=== PATIENT | female | born 1980 | race Caucasian/White ===

== ENCOUNTER 2016-08-27 17:56 | Emergency (ER) | payer MEDICAID ==
[2016-08-27] MEDS ORDERED: HYDROmorphone 1 MG/ML SYRINGE IVP STA (18:21)
[2016-08-27] MEDS ORDERED: ONDANSETRON 4 MG/2 ML VIAL IVP STA (18:21)
[2016-08-27] MEDS ORDERED: ONDANSETRON 4 MG/2 ML VIAL ONE (18:29)
[2016-08-27] MEDS ORDERED: HYDROmorphone 1 MG/ML SYRINGE ONE (18:29)
[2016-08-27] MEDS ORDERED: SODIUM CHLORIDE 0.9% 1,000 ML IV ONE ×2 (18:59→19:00)
[2016-08-27] MEDS ORDERED: PROMETHAZINE INJ 25 MG in SODIUM CHLORIDE 0.9% 50 ML IV STA (19:38)
[2016-08-27] MEDS ORDERED: PROMETHAZINE 25 MG/1 ML VIAL ONE (19:42)
[2016-08-27] MEDS ORDERED: KETOROLAC 60 MG/2 ML VIAL IVP STA (20:30)
[2016-08-27] MEDS ORDERED: KETOROLAC 30 MG/ML VIAL ONE (20:33)
[2016-08-27] MEDS ORDERED: IOPAMIDOL-300 100 ML VIAL IVP ONE (20:51)
[2016-08-27] MEDS ORDERED: PANTOPRAZOLE 40 MG VIAL IVP STA (21:20)
[2016-08-27] MEDS ORDERED: PANTOPRAZOLE 40 MG VIAL ONE (21:22)
[2016-08-27] MEDS ORDERED: HALOPERIDOL 5 MG/ML VIAL IVP STA (21:52)
[2016-08-27] MEDS ORDERED: HALOPERIDOL 5 MG/ML VIAL ONE (21:52)
== END 2016-08-27 22:16 | disposition home or self-care (01) ==
DX: R10.10 Upper abdominal pain, unspecified (principal); K29.00 Acute gastritis without bleeding
CPT/HCPCS: 36415; 74177; 76705; 80053; 81001; 81025; 83690; 85025; 93010; 96365; 96375; 99283; 99284; J1170; Q9967

== ENCOUNTER 2016-09-06 14:11 | Outpatient (CLI) | payer MEDICAID | END 2016-09-06 14:12 | disposition home or self-care (01) | DX: R11.0 Nausea (principal) ==

== ENCOUNTER 2016-09-17 11:30 | Day surgery (SDC) | payer MEDICAID ==
[2016-09-17] MEDS ORDERED: LACTATED RINGERS 1,000 ML IV ONE (12:13)
[2016-09-17] MEDS ORDERED: ONDANSETRON 4 MG/2 ML VIAL ONE (12:29)
[2016-09-17] MEDS ORDERED: fentaNYL 250 MCG/5 ML VIAL IVP ONE (13:40)
[2016-09-17] MEDS ORDERED: MIDAZOLAM 2 MG/2 ML VIAL IVP ONE (13:40)
[2016-09-17] MEDS ORDERED: LIDO GARGLE 30 ML BOTTLE PO ONE (13:45)
== END 2016-09-17 11:31 | disposition home or self-care (01) ==
PROC: 0DB68ZX Excision of Stomach, Via Natural or Artificial Opening Endoscopic, Diagnostic (ICD-10-PCS; principal; 2016-09-17 12:45)
DX: R10.9 Unspecified abdominal pain (principal); K92.0 Hematemesis; K21.9 Gastro-esophageal reflux disease without esophagitis
CPT/HCPCS: 43239; 81025; A9270; J3010; J7120

== ENCOUNTER 2016-12-16 12:30 | Outpatient (CLI) | payer MEDICAID | END 2016-12-16 12:31 | disposition home or self-care (01) | LOC: LAB.N 12:30 | PROVIDERS: ATTEND Physician Assistant | DX: R10.84 Generalized abdominal pain (principal) | CPT/HCPCS: 87338 ==

== ENCOUNTER 2017-01-07 14:04 | Outpatient (CLI) | payer MEDICAID ==
[2017-01-09 17:16] LABS: TEST RESULT REPORT (())
== END 2017-01-07 23:59 | disposition home or self-care (01) ==
LOC: LAB.N 14:04
PROVIDERS: ATTEND Physician Assistant
DX: Z83.49 Family history of other endocrine, nutritional and metabolic diseases (principal)
CPT/HCPCS: 36415; 81599; 82784; 83516

== ENCOUNTER 2017-02-12 21:35 | Emergency (ER) | payer MEDICAID ==
--- NOTE | 2017-02-12 23:22 | CT Preliminary Report ---
Exam: CT Head W/O IMPRESSION: Normal head CT. [facility] SITE ID: [id number]
--- NOTE | 2017-02-12 23:24 | CT Preliminary Report ---
Exam: CT Cervical Spine W/O IMPRESSION: Normal cervical spine CT. [facility] SITE ID: [id number]
--- NOTE | 2017-02-12 23:25 | CT Report ---
EXAM: CT HEAD EXAM DATE: 02/12/2017 11:01 PM. CLINICAL HISTORY: Nausea, vomiting, fall downstairs. COMPARISON: None. TECHNIQUE: Multiaxial CT images were obtained from the foramen magnum to the vertex. IV contrast: Non e. Reformats: Coronal. In accordance with CT protocol optimization, one or more of the following dose reduction techniques w ere utilized for this exam: automated exposure control, adjustment of mA and/or KV based on patient s ize, or use of iterative reconstructive technique. FINDINGS: Parenchyma: No intraparenchymal hemorrhage. No evidence of mass, midline shift, or CT findings of inf arction. Mak-white differentiation is distinct. Extraaxial Spaces: Normal for age. No subdural or epidural collections identified. Ventricles: Normal in size and position. Sinuses: Imaged paranasal sinuses, orbits, and mastoids show no significant abnormality. Bones: No evidence of fracture or calvarial defect. IMPRESSION: Normal head CT. [facility] Referring Provider Line: [phone] SITE ID: [id number]
--- NOTE | 2017-02-12 23:27 | CT Report ---
EXAM: CT CERVICAL SPINE WITHOUT CONTRAST DATE: 02/12/2017 11:02 PM HISTORY: Neck pain, fall downstairs, loss of consciousness. COMPARISONS: None. TECHNIQUE: Thin-section axial images were acquired of the cervical spine without contrast. Post-proce ssing: Coronal and sagittal reformats. Other: None. In accordance with CT protocol optimization, one or more of the following dose reduction techniques w ere utilized for this exam: automated exposure control, adjustment of mA and/or KV based on patient s ize, or use of iterative reconstructive technique. FINDINGS: Alignment: Normal. No scoliosis or spondylolisthesis. Bones: No fracture or bone lesion. Interspace Levels/Facets: C1-C2: Unremarkable. C2-C3: Unremarkable. C3-C4: Unremarkable. C4-C5: Unremarkable. C5-C6: Unremarkable. C6-C7: Unremarkable. C7-T1: Unremarkable. Musculature: Normal. No fatty atrophy. Other: The paravertebral and prevertebral soft tissues are normal. The lung apices are clear. IMPRESSION: Normal cervical spine CT. [facility] Referring Provider Line: [phone] SITE ID: [id number]
--- NOTE | 2017-02-12 23:40 | ED Physician Documentation ---
PD HPI HEAD INJURY - Stated complaint Stated Complaint: FELL DOWN STEPS - Chief complaint Chief Complaint: Neuro - History obtained from History obtained from: Patient, Family - History of Present Illness Mechanism of head injury: Fell Where head injury occurred: Other Timing - onset: How many days ago (4) Location of injury: Back Quality of pain: Pain, Aching Associated symptoms: LOC, Nausea / vomiting, Neck pain, Seizures Symptoms worsen with: Palpation, Movement Contributing factors: No: Anticoagulated Similar symptoms before: Has not had sx before Recently seen: Not recently seen - Additional information Additional information: Patient is a 36 year old female with no significant past medical history who is presenting to the emergency department for headache, neck pain nausea and vomiting. Patient states that she was in [facility] 3 days ago. patient states that it was raining and she fell down 16 steps hurting her head, neck and extremities. patient states that she went to a nurse there that gave her a numbing spray but patient has had multiple neurological symptoms since that time. Review of Systems Constitutional: denies: Fever, Chills Eyes: reports: Photophobia Ears: denies: Ear pain, Drainage/discharge Nose: denies: Rhinorrhea / runny nose, Congestion Throat: denies: Dental pain / toothache, Oral lesions / sores Cardiac: denies: Chest pain / pressure Respiratory: denies: Cough, Hemoptysis, Wheezing GI: reports: Nausea, Vomiting. denies: Abdominal Pain : denies: Hesitancy Skin: reports: Other (ecchymosis). denies: Rash Musculoskeletal: reports: Neck pain, Extremity pain Neurologic: reports: Syncope, Confused, Headache, Head injury. denies: Generalized weakness, Focal weakness, Numbness, Difficulty speaking Immunocompromised: denies: Immunocompromised PD PAST MEDICAL HISTORY - Past Medical History Past Medical History: Yes Cardiovascular: None Respiratory: None Neuro: Motion sickness Endocrine/Autoimmune: None GI: GERD, Other : None HEENT: None Psych: Depression, Anxiety Musculoskeletal: None Derm: None - Past Surgical History Past Surgical History: Yes General: Cholecystectomy /UNBUNDLER: section, Tubal ligation HEENT: Tonsil/Adenoidectomy - Present Medications Home Medications: Ambulatory Orders Medication Instructions Recorded Confirmed Famotidine [Pepcid] 20 mg PO BID #60 tablet 08/27/16 09/17/16 Omeprazole [PriLOSEC] 20 mg PO DAILY #30 capsule 08/27/16 09/17/16 Ondansetron Odt [Zofran] 4 mg TL Q6H PRN #10 tablet 08/27/16 09/17/16 Promethazine [Phenergan] 25 mg PO Q6H PRN #10 tab 08/27/16 09/17/16 Sertraline [Zoloft] 0 mg PO DAILY 08/27/16 09/17/16 buPROPion [Wellbutrin Sr] 100 mg PO DAILY 08/27/16 09/17/16 Ondansetron Odt [Zofran] 4 mg TL Q6H PRN #14 tablet 02/12/17 - Allergies Allergies/Adverse Reactions: Allergies Allergy/AdvReac Type Severity Reaction Status Date / Time No Known Drug Allergies Allergy Verified 02/12/17 21:43 - Social History Does the pt smoke?: No Smoking Status: Never smoker Does the pt drink ETOH?: No Does the pt have substance abuse?: No - Immunizations Immunizations are current?: Yes - POLST Patient has POLST: No PD ED PE NORMAL - Vitals Vital signs reviewed: Yes - General General: Alert and oriented X 3, Well developed/nourished - HEENT HEENT: PERRL, Ears normal, Moist mucous membranes, Dentition benign - Cardiac Cardiac: RRR, No murmur - Respiratory Respiratory: No respiratory distress - Abdomen Abdomen: Soft, Non tender, Non distended - Derm Derm: Normal color, Warm and dry - Neuro Neuro: Alert and oriented X 3, 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, No motor deficit, No sensory deficit, Normal speech - Psych Psych: Normal mood PD ED PE EXPANDED - Neck Neck: Soft tissue TTP (left sided tenderness to palpation, no step offs) - Extremities Extremities: Left shoulder (tenderness to palpation of left shoulder), Left hip (ecchymosis of left hip) Results - Vitals Vitals: Vital Signs - 24 hr 02/12/17 02/12/17 21:40 23:53 Temperature 36.8 C 36.2 C L Heart Rate 67 61 Respiratory 14 15 Rate Blood Pressure 129/81 H 131/81 H O2 Saturation 100 100 Oxygen O2 Source Room air - Rads (name of study) ct head Radiology: Final report received (no acute pathology) ct cervical spine Radiology: Final report received (no acute pathology) PD MEDICAL DECISION MAKING - ED course Complexity details: reviewed old records, reviewed results, re-evaluated patient , considered differential, d/w patient ED course: Patient was seen and examined at bedside. Due to the severity and location of her symptoms CT of head and cervical spine were ordered. x-rays of the extremities were not ordered since there was no gross deformity, patient was able to weight bare and had full rom. When patient returned from imaging the results were reviewed. there was no acute fracture or dislocation. patient was made aware of the findings. Patient required no further inpatient work up and was stable for discharge with outpatient follow up. Departure - Departure Disposition: Home, Self Care Clinical Impression: Concussion Condition: Good Instructions: ED Concussion Follow-Up: Amanda Godinez ARNP [Primary Care Provider] - As Needed Prescriptions: Ondansetron Odt [Zofran] 4 mg TL Q6H PRN #14 tablet PRN Reason: Nausea / Vomiting Comments: Your diagnostics today were within normal limits. there was no sign of any traumatic brain injury. that being said it is not always visualized on CT imaging. Your symptoms are consistent with concussion. You will need to take motrin or tylenol as needed for pain and zofran for the nausea. You should follow up with your pmd if your symptoms persist. You may return to the emergency department at any time for new worsening or uncontrollable symptoms. Discharge Date/Time: 02/13/17 00:22
[2017-02-12 23:54] VITALS: BP 131/81
== END 2017-02-13 00:22 | disposition home or self-care (01) ==
LOC: ED 21:35
DX: S06.0X0A Concussion without loss of consciousness, initial encounter (principal); W10.9XXA Fall (on) (from) unspecified stairs and steps, initial encounter; M54.2 Cervicalgia
CPT/HCPCS: 70450; 72125; 99283; 99284

== ENCOUNTER 2017-02-24 18:03 | Emergency (ER) | payer MEDICAID ==
[2017-02-24] MEDS ORDERED: SODIUM CHLORIDE 0.9% 1,000 ML IV ONE (21:31)
[2017-02-24] MEDS ORDERED: ONDANSETRON 4 MG/2 ML VIAL IVP STA ×2 (21:31→22:43)
[2017-02-24 21:45] LABS: BASOPHILS # (AUTO) 0.1 10^3/uL (0.0-0.1); BASOPHILS % (AUTO) 0.4 %; HCT - HEMATOCRIT 42.2 % (37.0-47.0); HGB - HEMOGLOBIN 13.6 g/dL (12.0-16.0); LYMPHOCYTES # (AUTO) 0.9 10^3/uL (1.5-3.5); LYMPHOCYTES % (AUTO) 6.3 %; MEAN CORPUSCULAR HGB CONC 32.1 g/dL (32.0-36.0); MEAN CORPUSCULAR VOLUME 80.9 fL (81.0-99.0); MEAN PLATELET VOLUME 7.9 fL (7.9-10.8); MONOCYTES # (AUTO) 0.3 10^3/uL (0.0-1.0); MONOCYTES % (AUTO) 1.9 %; NEUTROPHILS # (AUTO) 12.7 10^3/uL (1.5-6.6); NEUTROPHILS % (AUTO) 91.4 %; RED BLOOD COUNT 5.22 10^6/uL (4.20-5.40); UNCORRECTED WHITE BLOOD COUNT 13.9 x10^3/uL; WHITE BLOOD COUNT 13.9 x10^3/uL (4.8-10.8)
[2017-02-24] MEDS ORDERED: ONDANSETRON 4 MG/2 ML VIAL ONE ×2 (21:46→22:48)
[2017-02-24] MEDS ORDERED: HYDROmorphone 1 MG/ML SYRINGE IVP STA (21:50)
[2017-02-24] MEDS ORDERED: FAMOTIDINE 20 MG in SODIUM CHLORIDE 0.9% 50 ML IV STA (21:50)
[2017-02-24] MEDS ORDERED: FAMOTIDINE 20 MG/50 ML 50 ML IV ONE (21:56)
[2017-02-24] MEDS ORDERED: HYDROmorphone 1 MG/ML SYRINGE ONE (21:56)
[2017-02-24 21:58] LABS: ALBUMIN/GLOBULIN RATIO 1.4 (1.0-2.2); BILIRUBIN,TOTAL 0.5 mg/dL (0.2-1.0); CALCIUM 9.8 mg/dL (8.5-10.3); CREATININE 0.7 mg/dL (0.4-1.0); POTASSIUM 4.4 mmol/L (3.5-5.0); TOTAL PROTEIN 8.3 g/dL (6.7-8.2)
[2017-02-25] MEDS ORDERED: SODIUM CHLORIDE 0.9% 1,000 ML IV ONE (00:18)
[2017-02-25 01:28] LABS: BILIRUBIN,URINE NEGATIVE (NEGATIVE)
[2017-02-25] MEDS ORDERED: PROCHLORPERAZINE INJ 10 MG in SODIUM CHLORIDE 0.9% 50 ML IV ONE (01:31)
[2017-02-25] MEDS ORDERED: PROCHLORPERAZINE 10 MG/2 ML VIAL ONE (01:36)
[2017-02-25 01:37] LABS: HCG UR QUAL NEGATIVE; UA CHARGE (STRIP ONLY) YES; UR CULTURE IF IND NOT INDICATED
[2017-02-25 02:53] VITALS: BP 131/70
--- NOTE | 2017-02-25 04:16 | ED Physician Documentation ---
PD HPI ABD PAIN - Stated complaint Stated Complaint: VOMITING - Chief complaint Chief Complaint: Abd Pain - History obtained from History obtained from: Patient, Family - Additional information Additional information: Patient is a 36-year-old female who for the most part has no significant health problems. She does have a history of recurrent episodes of nausea vomiting and this is been ongoing issue. She had a cholecystectomy in the past and this is improved but not completely alleviated her problems. She does get these episodes where she has recurrent nausea vomiting and nobody's been able to find out any definite cause. The only thing new is the onset of diaphoresis today and the fact that she had not had a bowel movement for about a week until today. She also has a history of reflux takes omeprazole and also had some mild epigastric pain and tenderness on exam. She denies any fever or chills. There is not been any diarrhea. Macro review Review of systems: For pertinent positive and negatives in the review of systems please see the history of present illness, otherwise all other systems have been reviewed and are negative. Dragrash[employer] disclaimer: Parts of this medical record were created using voice recognition technology. Because of the inherent limitations of this system, occasional same sounding word substitutions do occur and persist despite proofreading. Please read the document for context. Review of Systems Constitutional: denies: Fever, Chills Cardiac: denies: Chest pain / pressure, Palpitations GI: reports: Abdominal Pain, Abdominal Swelling, Nausea, Vomiting. denies: Diarrhea, Hematemesis PD PAST MEDICAL HISTORY - Past Medical History Cardiovascular: None Respiratory: None Neuro: Motion sickness Endocrine/Autoimmune: None GI: GERD, Other : None HEENT: None Psych: Depression, Anxiety Musculoskeletal: None Derm: None - Past Surgical History Past Surgical History: Yes General: Cholecystectomy /LAUNDROMAT WORKER: section, Tubal ligation HEENT: Tonsil/Adenoidectomy - Present Medications Home Medications: Ambulatory Orders Medication Instructions Recorded Confirmed Famotidine [Pepcid] 20 mg PO BID #60 tablet 08/27/16 02/24/17 buPROPion [Wellbutrin Sr] 100 mg PO DAILY 08/27/16 02/24/17 Ondansetron Odt [Zofran] 4 mg TL Q6H PRN #14 tablet 02/25/17 Promethazine [Phenergan] 25 - 50 mg PO Q6H PRN #14 tab 02/25/17 - Allergies Allergies/Adverse Reactions: Allergies Allergy/AdvReac Type Severity Reaction Status Date / Time No Known Drug Allergies Allergy Verified 02/12/17 21:43 - Social History Does the pt smoke?: No Smoking Status: Never smoker Does the pt drink ETOH?: No Does the pt have substance abuse?: No - Immunizations Immunizations are current?: Yes - POLST Patient has POLST: No PD ED PE NORMAL - Vitals Vital signs reviewed: Yes - General General: Alert and oriented X 3, No acute distress - HEENT HEENT: Atraumatic - Neck Neck: Supple, no meningeal sign, No bony TTP - Cardiac Cardiac: RRR - Respiratory Respiratory: No respiratory distress - Abdomen Abdomen: Normal bowel sounds, Non tender, Non distended, Other (Minimal epigastric tenderness on deep palpation) - Rectal Rectal: Deferred - Derm Derm: Normal color - Extremities Extremities: No deformity Results - Vitals Vitals: Vital Signs - 24 hr 02/24/17 02/24/17 02/24/17 18:08 21:18 23:27 Temperature 36.0 C L 37.0 C Heart Rate 78 63 70 Respiratory 18 16 19 Rate Blood Pressure 138/67 H 148/81 H 132/74 H O2 Saturation 100 100 96 02/25/17 02/25/17 01:35 02:53 Temperature 35.6 C L Heart Rate 88 71 Respiratory 9 L 18 Rate Blood Pressure 133/76 H 131/70 H O2 Saturation 100 100 Oxygen O2 Source Room air - Labs Labs: Laboratory Tests 02/24/17 02/24/17 02/24/17 21:38 21:38 21:38 WBC 13.9 H RBC 5.22 Hgb 13.6 Hct 42.2 MCV 80.9 L MCH 26.0 L MCHC 32.1 RDW 15.0 Plt Count 450 MPV 7.9 Neut # 12.7 H Lymph # 0.9 L [place] # 0.3 Eos # 0.0 Baso # 0.1 Absolute Nucleated RBC 0.00 Nucleated RBCs 0.0 Sodium 139 Potassium 4.4 Chloride 101 Carbon Dioxide 26 Anion Gap 12.0 BUN 13 Creatinine 0.7 Estimated GFR (MDRD) 96 Glucose 176 H Calcium 9.8 Total Bilirubin 0.5 AST 28 ALT 37 Alkaline Phosphatase 75 Total Protein 8.3 H Albumin 4.9 Globulin 3.4 Albumin/Globulin Ratio 1.4 Lipase 22 HCG, Quant < 0.60 Urine Color Urine Clarity Urine pH Ur Specific [place] Urine Protein Urine Glucose (UA) Urine Ketones Urine Occult Blood Urine Nitrite Urine Bilirubin Urine Urobilinogen Ur Leukocyte Esterase Ur Microscopic Review Urine Culture Comments Urine HCG, Qual 02/25/17 01:20 WBC RBC Hgb Hct MCV MCH MCHC RDW Plt Count MPV Neut # Lymph # [place] # Eos # Baso # Absolute Nucleated RBC Nucleated RBCs Sodium Potassium Chloride Carbon Dioxide Anion Gap BUN Creatinine Estimated GFR (MDRD) Glucose Calcium Total Bilirubin AST ALT Alkaline Phosphatase Total Protein Albumin Globulin Albumin/Globulin Ratio Lipase HCG, Quant Urine Color YELLOW Urine Clarity CLEAR Urine pH 7.0 Ur Specific [place] 1.020 Urine Protein NEGATIVE Urine Glucose (UA) 100 H Urine Ketones 15 H Urine Occult Blood TRACE-LYSE Urine Nitrite NEGATIVE Urine Bilirubin NEGATIVE Urine Urobilinogen 0.2 (NORMAL) Ur Leukocyte Esterase NEGATIVE Ur Microscopic Review NOT INDICATED Urine Culture Comments NOT INDICATED Urine HCG, Qual NEGATIVE PD MEDICAL DECISION MAKING - ED course ED course: Patient is appearing female who presents with a complaint of nausea vomiting and decreased p.o. intake 1 day. She has a history of recurrent episodes of nausea and vomiting and is also status post cholecystectomy however her symptoms have continued. She denies any fever or chills and on exam she does have mild tenderness in the epigastrium otherwise there is a soft nontender non- clinically acute abdomen. An IV line was started she is given IV fluids, antiemetics and now feels better. Routine labs are done there is no significant laboratory abnormalities clinically the patient looks and feels better and at this time will be discharged home with the prescription for antiemetics, Disposition: To home Clinical impression: 1. Acute on recurrent nausea and vomiting Departure - Departure Disposition: 01 Home, Self Care Clinical Impression: Nausea and vomiting in adult Condition: Good Instructions: ED Nausea Vomiting Follow-Up: Adi Forrester MD [Primary Care Provider] - Prescriptions: Promethazine [Phenergan] 25 - 50 mg PO Q6H PRN #14 tab PRN Reason: Nausea / Vomiting Ondansetron Odt [Zofran] 4 mg TL Q6H PRN #14 tablet PRN Reason: Nausea / Vomiting Discharge Date/Time: 02/25/17 02:53
== END 2017-02-25 02:53 | disposition home or self-care (01) ==
LOC: ED 18:03
DX: R11.2 Nausea with vomiting, unspecified (principal); Z98.890 Other specified postprocedural states
CPT/HCPCS: 36415; 80053; 81003; 81025; 83690; 84702; 85025; 96361; 96365; 96375; 99284; J1170; J7040; 81001; 87086

== ENCOUNTER 2017-06-02 12:10 | Outpatient (CLI) | payer MEDICAID ==
[2017-06-02 12:41] LABS: BASOPHILS # (AUTO) 0.1 10^3/uL (0.0-0.1); BASOPHILS % (AUTO) 0.9 %; EOSINOPHILS # (AUTO) 0.3 10^3/uL (0.0-0.7); EOSINOPHILS % (AUTO) 4.7 %; HGB - HEMOGLOBIN 11.7 g/dL (12.0-16.0); LYMPHOCYTES # (AUTO) 2.8 10^3/uL (1.5-3.5); LYMPHOCYTES % (AUTO) 41.4 %; MEAN CORPUSCULAR HEMOGLOBIN 26.3 pg (27.0-31.0); MEAN CORPUSCULAR HGB CONC 33.5 g/dL (32.0-36.0); MEAN CORPUSCULAR VOLUME 78.4 fL (81.0-99.0); MEAN PLATELET VOLUME 8.1 fL (7.9-10.8); MONOCYTES # (AUTO) 0.5 10^3/uL (0.0-1.0); MONOCYTES % (AUTO) 7.8 %; NEUTROPHILS % (AUTO) 45.2 %; NUCLEATED RED BLOOD CELLS AUTO 0.1 /100WBC; RED BLOOD COUNT 4.47 10^6/uL (4.20-5.40); RED CELL DISTRIBUTION WIDTH 15.3 % (12.0-15.0); UNCORRECTED WHITE BLOOD COUNT 6.7 x10^3/uL; WHITE BLOOD COUNT 6.7 x10^3/uL (4.8-10.8)
[2017-06-02 12:44] LABS: CREATININE 0.6 mg/dL (0.4-1.0)
== END 2017-06-02 12:11 | disposition home or self-care (01) ==
LOC: LAB 12:10
PROVIDERS: ATTEND Obstetrics & Gynecology
DX: Z01.812 Encounter for preprocedural laboratory examination (principal); D25.9 Leiomyoma of uterus, unspecified
CPT/HCPCS: 36415; 80048; 85025; 86850; 86900; 86901

== ENCOUNTER 2017-06-04 07:28 | Inpatient (IN) | payer MEDICAID ==
--- NOTE | 2017-05-29 12:16 | PREOP HISTORY & PHYSICAL ---
DATE OF ADMISSION/SURGERY: IDENTIFICATION: The patient is a 36-year-old G4, P4 female who presents with a uterine fibroid. HISTORY OF PRESENT ILLNESS: She has had a fibroid over the last 6 years. It has gotten progressively worse over the last 7 months. She states that the pain is in the 7-9 range when it gets real bad. She was seen last Friday, at which time she is scheduled as soon as possible for a hysterectomy. She has never had any children vaginally at this particular point. However, she did get to complete, but had to have a for distress. She had an ultrasound , which shows an 8 cm fibroid in the uterus. PAST MEDICAL HISTORY: Positive for postconcussion syndrome. This was in January of this year. SURGICAL HISTORY: section x4, as well as laparoscopic cholecystectomy. Tubal ligation with her last . ALLERGIES: NONE KNOWN. CURRENT MEDICATIONS: Percocet. HABITS: The patient denies use of alcohol, tobacco, or street or addictive drugs. She has a cup of coffee daily. SOCIAL HISTORY: The patient is , lives with spouse and children. She works in the home. PHYSICAL EXAMINATION GENERAL: The patient is a well-developed, well-nourished white female. She appears in mild distress at this particular point. She is complaining of uterine pain and she has been given Percocet, which she takes occasionally for her pelvic discomfort. HEENT: Pupils are equal, round. Extraocular muscles are intact. Mouth is clear. Thyroid is not palpably enlarged. HEART: Regular rate and rhythm without murmurs. LUNGS: [place]aine[place] are clear without rales or wheezes. ABDOMEN: Shows scars from previous , as well as laparoscopic cholecystectomy. There is a palpable mass noted, probably about 4 fingerbreadths below the umbilicus. This is tender, duplicating the pain she is complaining of. PELVIC: Speculum exam shows no abnormal vaginal structures mucosa, the cervix is visualized. The pubic arch appears to be roughly 90 degrees or greater. However, the uterus is palpated and noted to be quite large at this time and in my clinical judgment, I feel that this would be very difficult to deliver through the vagina. IMPRESSION: A 36-year-old G4, P4 female with known uterine fibroid, which appears to be infarcting at this time. PLAN: We will proceed to abdominal hysterectomy. The option of doing a laparoscopic procedure, I believe would be not successful in this case. Risks and benefits have been explained to the patient including those, but not limited to bleeding, infection, injury to the pelvic organs, which include the bowel, bladder, and ureters. She is aware of the potential for DVT with PE, as well as postoperative adhesions, which could cause pain, bowel obstruction. She is already infertile in that she has had her tubes tied. JOB #: [id number] EXT JOB #:[id number] MTDPan
[~2017-06-04 07:28] MED LIST: ceFAZolin 2 GM/50 ML 2 GM/50 ML BAG IV ONE
[2017-06-04 07:50] LABS: HCG UR QUAL NEGATIVE
[2017-06-04] MEDS ORDERED: LACTATED RINGERS 1,000 ML IV ONE ×4 (07:53→13:09)
[2017-06-04] MEDS ORDERED: SCOPOLAMINE PATCH TOP ONE (08:55)
[2017-06-04] MEDS ORDERED: HYDROmorphone 0.5 MG/0.5 ML SYRINGE IVP ONE ×2 (09:46→22:49)
[2017-06-04] MEDS ORDERED: MIDAZOLAM 2 MG/2 ML VIAL IVP ONE (09:46)
[2017-06-04] MEDS ORDERED: ONDANSETRON 4 MG/2 ML VIAL IVP ONE (09:46)
[2017-06-04] MEDS ORDERED: fentaNYL 100 MCG/2 ML VIAL IVP ONE (09:46)
[2017-06-04] MEDS ORDERED: DEXAMETHASONE 4 MG/ML VIAL IVP ONE (09:46)
[2017-06-04] MEDS ORDERED: PROPOFOL 200 MG/20 ML VIAL IVP ONE (09:46)
[2017-06-04] MEDS ORDERED: GLYCOPYRROLATE 1 MG/5 ML VIAL IVP ONE (09:46)
[2017-06-04] MEDS ORDERED: NEOSTIGMINE 1 MG/1 ML 10 ML MDV IVP ONE (09:46)
[2017-06-04] MEDS ORDERED: LIDOCAINE-MPF 2% 5 ML VIAL IM ONE (09:46)
[2017-06-04] MEDS ORDERED: ACETAMINOPHEN 1,000 MG/100 ML 100 ML IV ONE (09:46)
[2017-06-04] MEDS ORDERED: ROCURONIUM 50 MG/5 ML VIAL IVP ONE (09:46)
[2017-06-04] MEDS ORDERED: ONDANSETRON 4 MG/2 ML VIAL IVP PRN ×2 (12:10→14:16)
[2017-06-04] MEDS ORDERED: HYDROmorphone PCA 10 MG IV PRN (12:18)
[2017-06-04] MEDS ORDERED: ONDANSETRON 4 MG/2 ML VIAL ONE (12:19)
[2017-06-04] MEDS ORDERED: fent/BUPIV 2 MCG/0.125% 250 ML EP ONE (12:25)
--- NOTE | 2017-06-04 12:34 | OPERATIVE REPORT ---
Operative Report - General Procedure Date: 06/04/17 Planned Procedure: ALLEGRA with BS Pre-Op Diagnosis: fibroid uterus Procedure Performed: ALLEGRA with BS Post Op Diagnosis: SAME - Procedure Note Primary Surgeon: Norman Herrera Secondary Surgeon: Jai Chaudhry Anesthesia Technique: General ET tube IV Fluids (mL): 1,600 Estimated Blood Loss (mL): 500 Urine Output (mL): 300 Complications: Adhesions
[2017-06-04] MEDS ORDERED: NALBUPHINE 20 MG/ML AMP IVP PRN ×2 (14:16→14:21)
[2017-06-04] MEDS ORDERED: diphenhydrAMINE INJ 50 MG/ML VIAL IV PRN (14:16)
[2017-06-04] MEDS ORDERED: fent/BUPIV 2 MCG/0.125% 250 ML EP PRN ×2 (14:16→14:21)
[2017-06-04] MEDS ORDERED: diphenhydrAMINE INJ 50 MG/ML VIAL IVP PRN (14:21)
[2017-06-04] MEDS: SIMETHICONE CHEW 80 MG TABLET PO SCH ×2 (14:29→21:04)
[2017-06-04] MEDS: METOCLOPRAMIDE 10 MG/2 ML VIAL IVP PRN ×2 (15:00→20:53)
[2017-06-04] MEDS: LACTATED RINGERS 1,000 ML IV SCH ×2 (15:00→20:52)
[2017-06-04] MEDS: ACETAMINOPHEN 1,000 MG/100 ML 100 ML IV SCH ×2 (15:04→20:52)
[2017-06-04] MEDS: ACETAMINOPHEN 500 MG TABLET PO SCH ×2 (15:12→20:44)
[2017-06-04] MEDS ORDERED: METHOCARBAMOL 500 MG TABLET PO PRN (16:04)
[2017-06-04] MEDS: levETIRAcetam 250 MG TABLET PO SCH ×2 (18:22→21:04)
[2017-06-04] MEDS: LORazepam 2 MG/ML SYRINGE IVP PRN ×2 (18:30→22:32)
[2017-06-04] MEDS: ONDANSETRON 4 MG/2 ML VIAL IVP PRN (18:30)
[2017-06-04] MEDS: DOCUSATE SODIUM 100 MG CAPSULE PO SCH (21:06)
[2017-06-05] MEDS: ACETAMINOPHEN 1,000 MG/100 ML 100 ML IV SCH ×4 (01:19→18:44)
[2017-06-05] MEDS: fent/BUPIV 2 MCG/0.125% 250 ML EP PRN ×2 (02:49→15:37)
[2017-06-05] MEDS: LACTATED RINGERS 1,000 ML IV SCH ×2 (04:15→11:09)
[2017-06-05] MEDS: ACETAMINOPHEN 500 MG TABLET PO SCH ×3 (05:02→18:41)
[2017-06-05 05:09] LABS: BASOPHILS % (AUTO) 0.2 %; EOSINOPHILS % (AUTO) 0.1 %; HCT - HEMATOCRIT 30.5 % (37.0-47.0); HGB - HEMOGLOBIN 9.9 g/dL (12.0-16.0); LYMPHOCYTES # (AUTO) 1.9 10^3/uL (1.5-3.5); LYMPHOCYTES % (AUTO) 18.1 %; MEAN CORPUSCULAR HEMOGLOBIN 25.8 pg (27.0-31.0); MEAN CORPUSCULAR HGB CONC 32.5 g/dL (32.0-36.0); MEAN CORPUSCULAR VOLUME 79.3 fL (81.0-99.0); MEAN PLATELET VOLUME 8.6 fL (7.9-10.8); MONOCYTES # (AUTO) 0.9 10^3/uL (0.0-1.0); MONOCYTES % (AUTO) 8.1 %; NEUTROPHILS # (AUTO) 7.8 10^3/uL (1.5-6.6); NEUTROPHILS % (AUTO) 73.5 %; RED BLOOD COUNT 3.85 10^6/uL (4.20-5.40); RED CELL DISTRIBUTION WIDTH 15.5 % (12.0-15.0); UNCORRECTED WHITE BLOOD COUNT 10.6 x10^3/uL; WHITE BLOOD COUNT 10.6 x10^3/uL (4.8-10.8)
[2017-06-05] MEDS: SIMETHICONE CHEW 80 MG TABLET PO SCH ×3 (06:03→21:09)
--- NOTE | 2017-06-05 08:45 | OPERATIVE REPORT ---
DATE OF SURGERY: 06/04/2017 00:00:00 PREOPERATIVE DIAGNOSES 1. Fibroid uterus. 2. Menorrhagia. 3. Pelvic pain. 4. Infarcting fibroid. POSTOPERATIVE DIAGNOSES 1. Fibroid uterus. 2. Menorrhagia. 3. Pelvic pain. 4. Infarcting fibroid. NAME OF PROCEDURE: Total abdominal hysterectomy and bilateral salpingectomy. SURGEON: Norman Herrera MD COMMUNICATION INSTRUCTOR: Jai Chaudhry MD ANESTHESIOLOGIST: ALEJANDRO Staples. ANESTHESIA: General via endotracheal tube. FINDINGS: Upon entering the abdominal cavity, there was evidence of adhesions of the omentum to the anterior abdominal wall. The uterus was noted to be large rising out of the pelvis. There were dense adhesions from the bladder to the lower uterine segment. The cervix appeared to be long and extended deep into the pelvic cavity. There was evidence of previously having a bilateral tubal ligation with partial salpingectomy. ESTIMATED BLOOD LOSS: 500 mL IV FLUIDS: 1600 mL. URINE OUTPUT: 300 mL. PROCEDURE: Following adequate endotracheal anesthesia, the patient was placed in the dorsal lithotomy position in [facility]. At this point, a pelvic examination was performed. The uterus was noted to arise high out of the pelvis. It was probably 3 cm below the umbilicus. It appeared to fill the pelvis. The vagina was moderately distensible; however, the perineum was still quite nulliparous as she had never had any children vaginally. It was decided at this time to proceed with an open laparotomy for a hysterectomy. She was then prepped and draped in the usual fashion. The legs were taken down from the [facility]. At this point, a timeout was performed, which the patient identification and patient concerns were reviewed. The procedure commenced. The old Pfannenstiel incision was excised, then this was carried down to the fascia and the fascia incised transversely using Richardson scissors and carried laterally. It was then both bluntly and sharply dissected free from the rectus abdominis. Electrocautery was utilized for hemostasis on the way in. The peritoneum was entered high. Care was taken to avoid injury to the bowel or abdominal contents. The incision was carried inferiorly. The uterus was encountered and noted to rise high out of the pelvis. The ovaries showed evidence of previous [place] tubal ligation. The left tube was fairly adherent to the ovary, as well as the right tube. The bladder on the lower uterine segment was adhered to the lower uterine segment of the uterus along the midline. An O'Olegario O'Calvert rectractor was placed i the usual fashion. At this point, the right corner was grasped with a Marvin, then utilizing Richardson scissors, the left utero-ovarian ligament was cross clamped and then divided using Richardson scissors. This was ligated with 0 Vicryl with a transection suture. The round ligament was then ligated and then transected with electrocautery. There were some arcades of the vessels running along the lateral aspect that had some bleeding. These were treated with a Rika clamp, divided, and then ligated with Rika stitches with #0 Vicryl. Again, the broad ligament was open and then this was carried down to the lower portion of the uterus. The ligament was cross clamped, pedicles developed using a #10 blade and ligated with Rika stitches and #0 Vicryl. The contralateral cornu was treated in identical fashion. The round ligament was ligated with #0 Vicryl then transected. The broad leaf was then clamped with Rika clamps, divided using a #10 blade and ligated with Rika stitches with #0 Vicryl. The bladder was dissected both sharply and freely from the lower uterine segment. At this point, the uterine vessels on the left hand side were cross clamped utilizing a Rika clamp and ligated with a #10 blade and ligated with a Rika stitch with #0 Vicryl. Then straight Rika clamps were utilized on the lateral aspect of the uterus. The contralateral side was treated in identical fashion. The uterine vessels were cross clamped, divided with #10 blade and then ligated and the transverse cervical ligament was cross clamped with a straight Rika clamp, divided with a #10 blade and ligated with Rika stitches and #0 Vicryl. Care was taken to assure these clamps were as close to the uterus as possible. This was carried all the way down to the cervix , then curved Rika clamps were applied in reverse fashion. The transverse cervical ligament was divided using a #10 blade and Rika stitches with #0 Vicryl were placed. The vagina was entered on the patient's right hand side with Harry scissors and the cervix was amputated from the apex of vagina. Care was taken to apply this as close as possible to minimize any risk foreshortening of the vagina. The apex of vagina was then closed using figure-of -eights of #0 Vicryl. Good hemostasis was observed of the vagina. There was some bleeding encountered on the bladder bed, both along the midline where dense adhesions occurred as well as along the bed of the cervix. This was treated with electrocautery and then with Surgicel. Good hemostasis was obtained , sterile water was placed in the pelvic cavity to look for additional bleeders. There was a bleeder on the broad ligament on the left hand side. It was treated with 2-0 Vicryl suture. Good hemostasis was observed. At this point , the fallopian tubes were removed from the ovaries. These were somewhat adherent to the ovarian surface, so Rika clamps were placed as close to the fallopian tube as possible and the fallopian tube was excised and then ligated with 2-0 Vicryl suture. These were inspected for bleeding, none was noted, so there is evidence of good hemostasis. The cul-de-sac was then again inspected for bleeding. There was oozing once again from the bladder bed. No stitches were placed at this time. Superficial electrocautery was utilized. It was about this time that there was evidence of some bleeding coming from the urine, but this lightened with time. At this point, the retractor was removed from the abdominal cavity, the bowel was allowed to flow into its normal place. The peritoneum was closed utilizing 2-0 Vicryl. The rectus was inspected for bleeding. There was some bleeding at the apex on the right hand side, this was treated with electrocautery and Surgicel as well as [id number] of 2-0 Vicryl. Good hemostasis was obtained with no further blood loss. The fascia was then closed using a looped PDS. The subcutaneous tissue was undermined on the right-hand side to decrease puckering on that side. Subcutaneous tissue was then closed using 2-0 Vicryl. The incision itself was closed using 4-0 Monocryl subcuticular. Mastisol and Steri-Strips were applied and following this a wound VAC was applied. The patient tolerated the procedure well and was taken to recovery in stable condition. Sponge and needle counts were correct. JOB #: [id number] EXT JOB #:[id number] MTDD
[2017-06-05] MEDS: levETIRAcetam 250 MG TABLET PO SCH ×2 (10:10→20:25)
[2017-06-05] MEDS: DOCUSATE SODIUM 100 MG CAPSULE PO SCH ×2 (10:10→20:25)
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
[2017-06-05] MEDS ORDERED: MAGNESIUM HYDROXIDE 2,400 MG/30 ML UDC PO PRN (11:09)
[2017-06-05] MEDS ORDERED: FERRIC GLUCONATE 125 MG in SODIUM CHLORIDE 0.9% 100ML 100 ML IV SCH (12:30)
[2017-06-05] MEDS: METOCLOPRAMIDE 10 MG/2 ML VIAL IVP PRN (13:41)
[2017-06-05] MEDS: HYDROmorphone 2 MG TABLET PO SCH ×3 (13:45→20:25)
[2017-06-05] MEDS ORDERED: ZOLPIDEM 5 MG TABLET PO PRN (18:31)
--- NOTE | 2017-06-05 18:34 | PROVIDER PROGRESS NOTE ---
Subjective - Prog Note Date Prog Note Date: 06/05/17 Prog Note Time: 18:32 - Subjective Pt reports feeling: Improved Subjective: Patient still lying in bed. Spoke with Trinity Staples CRNA earlier today who told me that the patient will have a difficult time with pain control. The patient has a tendency to vomit with narcotics. Agreed with Trinity to continue the patient's epidural until tomorrow. Patient has only vomited once today. States she is feeling better. Patient would like a sleep aid for this evening. Objective - Vital Signs/Intake & Output Vital Signs: Vital Signs x48h Temp Pulse Resp BP BP Pulse Ox 06/05/17 16:00 98.6 F 60 18 142/73 H 100 06/05/17 12:00 98.6 F 73 18 113/77 100 Intake & Output: Intake & Output 06/02/17 06/03/17 06/04/17 06/05/17 23:59 23:59 23:59 23:59 Intake Total 1080 3400 Output Total 1415 2850 Balance -335 550 - Objective General Appearance: positive: No acute distress - Lab Results Fish Bones: 06/05/17 04:33 Other Labs: Lab Results x24hrs 06/05/17 Range/Units 04:33 WBC 10.6 (4.8-10.8) x10^3/uL RBC 3.85 L (4.20-5.40) 10^6/uL Hgb 9.9 L (12.0-16.0) g/dL Hct 30.5 L (37.0-47.0) % MCV 79.3 L (81.0-99.0) fL MCH 25.8 L (27.0-31.0) pg MCHC 32.5 (32.0-36.0) g/dL RDW 15.5 H (12.0-15.0) % Plt Count 302 (130-450) 10^3/uL MPV 8.6 (7.9-10.8) fL Neut # 7.8 H (1.5-6.6) 10^3/uL Lymph # 1.9 (1.5-3.5) 10^3/uL [place] # 0.9 (0.0-1.0) 10^3/uL Eos # 0.0 (0.0-0.7) 10^3/uL Baso # 0.0 (0.0-0.1) 10^3/uL Absolute Nucleated RBC 0.00 x10^3/uL Nucleated RBC % 0.0 /100WBC - Diagnostic Imaging Diagnostic Imaging Results: positive: Other (Dark yellow urine in simeon. No obvious blood in collecting bag.) Assessment/Plan - Problem List (1) S/P hysterectomy Impression: 36 yo S/p ALLEGRA/BS 06/04/2017. Improved nausea and vomiting. Iron deficiency anemia. S/p ferric sulfate IV transfusion today. Anticipate difficult pain control after epidural removed. Will continue aggressive anti-inflammatory care with continuous Celebrex and acetaminophen. Patient has metaclopramide and zofran written. Will add a scopalamine patch. Will also add antacids to minimize nausea from acid reflux since the patient is supine. PRN zolpidem.
[2017-06-05] MEDS: FAMOTIDINE 20 MG TABLET PO SCH ×2 (18:43→19:49)
[2017-06-05] MEDS: SCOPOLAMINE PATCH TOP SCH (19:03)
[2017-06-05] MEDS: AMITRIPTYLINE 10 MG TABLET PO SCH (20:25)
[2017-06-05] MEDS: CELECOXIB 100 MG CAPSULE PO SCH (20:25)
[2017-06-05] MEDS: buPROPion SR 100 MG TABLET PO SCH (20:25)
[2017-06-06] MEDS: HYDROmorphone 2 MG TABLET PO SCH ×6 (00:09→20:39)
[2017-06-06] MEDS: ACETAMINOPHEN 1,000 MG/100 ML 100 ML IV SCH ×2 (00:12→04:54)
[2017-06-06] MEDS: ACETAMINOPHEN 500 MG TABLET PO SCH ×3 (03:17→19:01)
[2017-06-06] MEDS: fent/BUPIV 2 MCG/0.125% 250 ML EP PRN (04:06)
[2017-06-06] MEDS: SIMETHICONE CHEW 80 MG TABLET PO SCH ×3 (05:48→21:22)
--- NOTE | 2017-06-06 08:31 | PROVIDER PROGRESS NOTE ---
Subjective - Prog Note Date Prog Note Date: 06/06/17 Prog Note Time: 08:26 - Subjective Pt reports feeling: Improved Subjective: Patient lying supine in bed. States she had nausea last night. coming to visit her shortly. Epidural and simeon catheter still in. Has towel on her head and another towel rolled beneath her neck. Objective - Vital Signs/Intake & Output Vital Signs: Vital Signs x48h Temp Pulse Resp BP Pulse Ox 06/06/17 05:55 97.7 F 64 18 105/50 L 99 Intake & Output: Intake & Output 06/03/17 06/04/17 06/05/17 06/06/17 23:59 23:59 23:59 23:59 Intake Total 1080 3400 1400 Output Total 1415 2850 950 Balance -335 550 450 - Lab Results Fish Bones: 06/05/17 04:33 Assessment/Plan - Problem List (1) S/P hysterectomy Impression: 36 yo S/p ALLEGRA/BS 06/04/2017, POD #2 Remove epidural and ismeon today Ambulate Continue routine Celebrex, tylenol, colace and dilaudid Hopefully home tomorrow Will check on the patient later today.
[2017-06-06] MEDS: buPROPion SR 100 MG TABLET PO SCH ×2 (10:05→21:26)
[2017-06-06] MEDS: CELECOXIB 100 MG CAPSULE PO SCH ×2 (10:05→21:13)
[2017-06-06] MEDS: FAMOTIDINE 20 MG TABLET PO SCH ×2 (10:05→21:12)
[2017-06-06] MEDS: levETIRAcetam 250 MG TABLET PO SCH ×2 (10:05→21:13)
[2017-06-06] MEDS: DOCUSATE SODIUM 100 MG CAPSULE PO SCH ×2 (10:05→21:13)
--- NOTE | 2017-06-06 13:26 | PROVIDER PROGRESS NOTE ---
Subjective - Prog Note Date Prog Note Date: 06/06/17 Prog Note Time: 13:23 - Subjective Pt reports feeling: Improved Subjective: Patient lying in bed. at bedside. Epidural removed this AM. Simeon catheter still in-situ. Has some numbness in left leg. Motivated to take a shower today. Objective - Vital Signs/Intake & Output Reviewed Vital Signs: Yes Vital Signs: Vital Signs x48h Temp Pulse Resp BP BP Pulse Ox 06/06/17 12:27 98.8 F 89 16 116/57 L 99 06/06/17 09:00 97.7 F 65 16 129/65 98 06/06/17 05:55 97.7 F 64 18 105/50 L 99 Intake & Output: Intake & Output 06/03/17 06/04/17 06/05/17 06/06/17 23:59 23:59 23:59 23:59 Intake Total 1080 3400 1850 Output Total 1415 2850 2500 Balance -335 550 -650 - Objective General Appearance: positive: No acute distress Eyes Bilateral: positive: Normal inspection Abdomen: positive: Non-tender (Wound vac in place and working well) Neurologic/Psychiatric: positive: Oriented x3 - Lab Results Fish Bones: 06/05/17 04:33 Assessment/Plan - Problem List (1) S/P hysterectomy Impression: 36 yo S/p ALLEGRA, POD#2 D/C simeon Ambulate and shower today Continue current care Anticipate home tomorrow. Will need to have pain controlled with oral meds, no significant nausea or vomiting and be able to void
[2017-06-06] MEDS: SODIUM CHLORIDE FLUSH 0.9% 10 ML SYRINGE IVP PRN ×3 (16:49→23:01)
[2017-06-06] MEDS: METOCLOPRAMIDE 10 MG/2 ML VIAL IVP PRN (16:49)
[2017-06-06] MEDS ORDERED: oxyCOD/ACETAMIN 5 MG/325 MG TABLET PO PRN (19:28)
[2017-06-06] MEDS: AMITRIPTYLINE 10 MG TABLET PO SCH (21:12)
[2017-06-06] MEDS: LORazepam 0.5 MG TABLET PO PRN (21:13)
[2017-06-06] MEDS: ONDANSETRON 4 MG/2 ML VIAL IVP PRN (22:01)
[2017-06-06] MEDS ORDERED: PROCHLORPERAZINE 25 MG SUPP PR PRN (22:06)
[2017-06-06] MEDS: HYDROmorphone 0.5 MG/0.5 ML SYRINGE IVP PRN (23:02)
[2017-06-07] MEDS: HYDROmorphone 2 MG TABLET PO SCH ×3 (00:59→07:44)
[2017-06-07] MEDS: METOCLOPRAMIDE 10 MG/2 ML VIAL IVP PRN ×2 (01:04→06:51)
[2017-06-07] MEDS: SODIUM CHLORIDE FLUSH 0.9% 10 ML SYRINGE IVP PRN ×3 (01:04→03:15)
[2017-06-07] MEDS: HYDROmorphone 0.5 MG/0.5 ML SYRINGE IVP PRN ×5 (03:09→22:55)
[2017-06-07] MEDS: ACETAMINOPHEN 1,000 MG/100 ML 100 ML IV PRN ×3 (03:15→15:48)
[2017-06-07] MEDS: ONDANSETRON 4 MG/2 ML VIAL IVP PRN ×3 (03:38→21:15)
[2017-06-07 06:22] LABS: BASOPHILS % (AUTO) 0.2 %; HCT - HEMATOCRIT 34.3 % (37.0-47.0); LYMPHOCYTES % (AUTO) 3.8 %; MEAN CORPUSCULAR HEMOGLOBIN 25.7 pg (27.0-31.0); MEAN CORPUSCULAR HGB CONC 32.1 g/dL (32.0-36.0); MEAN CORPUSCULAR VOLUME 80.1 fL (81.0-99.0); MEAN PLATELET VOLUME 8.3 fL (7.9-10.8); MONOCYTES % (AUTO) 2.3 %; NEUTROPHILS % (AUTO) 93.7 %; RED BLOOD COUNT 4.28 10^6/uL (4.20-5.40); RED CELL DISTRIBUTION WIDTH 14.7 % (12.0-15.0); UNCORRECTED WHITE BLOOD COUNT 14.9 x10^3/uL; WHITE BLOOD COUNT 14.9 x10^3/uL (4.8-10.8)
[2017-06-07 06:35] LABS: BILIRUBIN,TOTAL 0.5 mg/dL (0.2-1.0); CALCIUM 8.9 mg/dL (8.5-10.3); CREATININE 1.7 mg/dL (0.4-1.0); TOTAL PROTEIN 7.2 g/dL (6.7-8.2)
[2017-06-07] MEDS: SIMETHICONE CHEW 80 MG TABLET PO SCH (06:51)
[2017-06-07 07:07] LABS: BAND NEUTROPHILS % (MANUAL) 1 %; LYMPHOCYTES % (MANUAL) 8 %; NEUTROPHILS % (MANUAL) 88 %; NP AUTO DIFFERENTIAL? YES; NP MAN DIFFERENTIAL? NO; PLATELET ESTIMATE, MANUAL NORMAL (130-450,000) (NORMAL); TOTAL CELLS COUNTED 100
--- NOTE | 2017-06-07 08:01 | XRAY Preliminary Report ---
Exam: XR ABDOMEN ACUTE IMPRESSION: 1. Nonspecific bowel gas pattern with relative paucity of small bowel gas. 2. Suspect moderate amount of retained colon fecal material. 3. Stable appearance of the chest without acute cardiopulmonary abnormality. [facility] SITE ID: [id number]
--- NOTE | 2017-06-07 08:04 | XRAY Report ---
EXAM: ABDOMINAL SERIES AND PA CHEST EXAM DATE: 06/07/2017 07:15 AM. CLINICAL HISTORY: Nausea and vomiting concern for obstruction. COMPARISON: CT abdomen and pelvis 08/27/2016; chest x-ray 09/07/2011.. TECHNIQUE: 2 views abdomen and 1 view chest. FINDINGS: CHEST: Lungs/Pleura: No focal opacities. No effusion or pneumothorax. Mediastinum: Within exam limitations, cardiomediastinal contour is normal. ABDOMEN: Bowel Gas Pattern: Bowel gas pattern is nonspecific. Relative posterior small bowel gas. Normal calib er gaseous distention of the transverse colon. Moderate colonic retained fecal matter is noted. Free Air: No evidence of free intraperitoneal gas. Other: Right upper quadrant clips indicate prior cholecystectomy. IMPRESSION: 1. Nonspecific bowel gas pattern with relative paucity of small bowel gas. 2. Suspect moderate amount of retained colon fecal material. 3. Stable appearance of the chest without acute cardiopulmonary abnormality. [facility] Referring Provider Line: [phone] SITE ID: [id number]
[2017-06-07] MEDS: LACTATED RINGERS 1,000 ML IV SCH ×3 (08:11→21:15)
[2017-06-07] MEDS: LORazepam 0.5 MG TABLET PO PRN (08:12)
--- NOTE | 2017-06-07 09:21 | PROVIDER PROGRESS NOTE ---
Subjective - General Admit Date: 06/04/17 Procedure Date: 06/04/17 Post Op Days: 3 Procedure Performed: Total abdominal hysterectomy, bilateral salpingectomy, lysis of adhesions// - Review of Systems Wound/Incisions: positive: Healing well, Drainage (No drainage or skin wound complaints) Drain Type: Wound VAC to Laparotomy wound -- Functional; Mclaughlin catheter discontinued General: positive: Fever (Patient reports feeling feverish and having chills last night; Temperature 37 Celsius), Weakness, Malaise, Appetite (Minimal appetite for solid food) HEENT: positive: No symptoms Pulmonary: positive: No symptoms Cardiovascular: positive: No symptoms Gastrointestinal: positive: Nausea, Vomiting (Clear emesis), Abdominal pain ( Patient rates abdominal pain 8-9/10 Centered around the operative site in the midline) Genitourinary: positive: Retention (Since discontinuation of Mclaughlin patient has difficulty voiding; Low urine output over the last 8 hours) Musculoskeletal: positive: No symptoms Skin: positive: No symptoms Psychiatric: positive: Anxiety - Other Other Information/Narrative: Patient expresses a desire to get better however, her retching and vomiting has Impeded her return to daily function. Patient is not narcotic aliya and had a 10 day course of Percocet prior to her surgery. Patient states that she is sensitive to opioids. She was tolerating p.o. Dilaudid yesterday but there is been some precipitating event that is triggered the rash vomits cycle again. Discussed case with her RN. Objective - Patient Data Vital Signs: Vital Signs x48h Temp Pulse Resp BP Pulse Ox 06/07/17 07:46 98.6 F 73 20 126/66 99 06/07/17 05:00 98.1 F 87 18 155/94 H 99 Intake & Output: Intake and Output Totals x24h 06/05/17 06/06/17 06/07/17 23:59 23:59 23:59 Intake Total 3400 2220 100 Output Total 2850 2900 100 Balance 550 -680 0 - Lab Results Lab Results: 06/07/17 05:47 06/07/17 05:47 Other Lab Results: Lab Results x24hrs 06/07/17 06/07/17 Range/Units 05:47 05:47 WBC 14.9 H (4.8-10.8) x10^3/uL RBC 4.28 (4.20-5.40) 10^6/uL Hgb 11.0 L (12.0-16.0) g/dL Hct 34.3 L (37.0-47.0) % MCV 80.1 L (81.0-99.0) fL MCH 25.7 L (27.0-31.0) pg MCHC 32.1 (32.0-36.0) g/dL RDW 14.7 (12.0-15.0) % Plt Count 356 (130-450) 10^3/uL MPV 8.3 (7.9-10.8) fL Neut # Not Reportable Lymph # Not Reportable [place] # Not Reportable Eos # Not Reportable Baso # Not Reportable Absolute Nucleated RBC Not Reportable Total Counted 100 Band Neuts % (Manual) 1 (0 - 10) % Nucleated RBC % Not Reportable Neutrophils # (Manual) 13.3 H (1.5-6.6) 10^3/uL Lymphocytes # (Manual) 1.2 L (1.5-3.5) 10^3/uL Monocytes # (Manual) 0.4 (0.0-1.0) 10^3/uL Differential Comment MANUAL DIFFERENTIAL Platelet Estimate NORMAL (130-450,000) (NORMAL) RBC Morph Micro Appear NORMAL APPEARANCE (NORMAL) Sodium 138 (135-145) mmol/L Potassium 4.0 (3.5-5.0) mmol/L Chloride 102 (101-111) mmol/L Carbon Dioxide 23 (21-32) mmol/L Anion Gap 13.0 (6-13) BUN 12 (6-20) mg/dL Creatinine 1.7 H (0.4-1.0) mg/dL Estimated GFR (MDRD) 34 L (>89) Glucose 150 H (70-100) mg/dL Calcium 8.9 (8.5-10.3) mg/dL Total Bilirubin 0.5 (0.2-1.0) mg/dL AST 24 (10-42) IU/L ALT 27 (10-60) IU/L Alkaline Phosphatase 60 (42-121) IU/L Total Protein 7.2 (6.7-8.2) g/dL Albumin 3.6 (3.2-5.5) g/dL Globulin 3.6 (2.1-4.2) g/dL Albumin/Globulin Ratio 1.0 (1.0-2.2) - Current Medications Current Medications: Current Medications Generic Name Dose Route Start Last Admin Trade Name Freq PRN Reason Stop Dose Admin Amitriptyline HCl 10 mg 06/05/17 21:00 06/06/17 21:12 Elavil PO 10 mg QPM KERA Administration Bupropion HCl 150 mg 06/05/17 21:00 06/06/17 21:26 Wellbutrin Sr PO Not Given BID KERA Celecoxib 200 mg 06/05/17 21:00 06/06/17 21:13 Celebrex PO 200 mg BID KERA Administration Docusate Sodium 100 mg 06/04/17 21:00 06/06/17 21:13 Colace 100mg Capsule PO 100 mg BID KERA Administration Famotidine 20 mg 06/05/17 19:00 06/06/17 21:12 Pepcid PO 20 mg BID KERA Administration Hydromorphone HCl 4 mg 06/05/17 12:00 06/07/17 07:44 Dilaudid PO Not Given Q4H KERA Hydromorphone HCl 2 mg 06/06/17 22:13 06/07/17 08:11 Dilaudid Inj Syringe IVP 2 mg Q4H PRN Administration PAIN Fentanyl/Bupivacaine/Sodium Chlor 250 mls @ 0 mls/hr 06/04/17 16:15 06/06/17 04:06 Fent/Bupiv 2 Mcg/0.125% EP 12 mls/hr .Q0M PRN Administration PAIN Protocol Per Protocol Acetaminophen 100 mls @ 400 mls/hr 06/07/17 02:05 06/07/17 03:38 Ofirmev IV Infused Q6HR PRN Infusion PAIN Lactated Ringer's 1,000 mls @ 166 mls/hr 06/07/17 08:00 06/07/17 08:11 Lr IV 166 mls/hr .Q6H2M KERA Administration Levetiracetam 250 mg 06/05/17 21:00 06/06/17 21:13 Keppra PO 250 mg BID KERA Administration Lorazepam 0.5 mg 06/05/17 11:07 06/07/17 08:12 Ativan PO 0.5 mg DAILY PRN Administration NEEDED PER PROVIDER ORDERS Methocarbamol 500 mg 06/04/17 16:04 06/06/17 19:48 Robaxin PO 500 mg Q8HR PRN Administration Spasms Metoclopramide HCl 10 mg 06/04/17 14:16 06/07/17 06:51 Reglan Inj IVP 10 mg Q6H PRN Administration Nausea / Vomiting Ondansetron HCl 4 mg 06/04/17 14:21 06/07/17 03:38 Zofran Inj IVP 4 mg Q6HR PRN Administration Nausea / Vomiting Prochlorperazine Maleate 25 mg 06/06/17 22:06 06/07/17 02:[address] 25 mg BID PRN Administration Nausea / Vomiting Scopolamine HBr 1 patch 06/05/17 19:00 06/05/17 19:03 Transderm-Scop TOP Not Given Q3D KERA Simethicone 80 mg 06/04/17 14:00 06/07/17 06:51 Mylicon PO Not Given TID KERA Sodium Chloride 10 ml 06/04/17 14:04 06/07/17 03:15 Normal Saline Flush 0.9% IVP 10 ml PRN PRN Administration PER PHYSICIAN ORDER Exam - Exam Vital Signs: Vital Signs (72 hours) 06/04/17 06/04/17 06/04/17 12:10 12:16 12:20 Temperature Heart Rate [ Brachial] Heart Rate [ Monitoring electrodes] Respiratory Rate Blood Pressure 106/41 L [Brachial artery] Blood Pressure [Left Brachial artery] Blood Pressure [Right Brachial artery] O2 Saturation 97 98 06/04/17 06/04/17 06/04/17 12:26 12:31 12:34 Temperature Heart Rate [ Brachial] Heart Rate [ Monitoring electrodes] Respiratory Rate Blood Pressure [Brachial artery] Blood Pressure [Left Brachial artery] Blood Pressure [Right Brachial artery] O2 Saturation 98 97 98 06/04/17 06/04/17 06/04/17 12:40 12:44 12:51 Temperature Heart Rate [ Brachial] Heart Rate [ Monitoring electrodes] Respiratory Rate Blood Pressure [Brachial artery] Blood Pressure [Left Brachial artery] Blood Pressure [Right Brachial artery] O2 Saturation 96 99 98 06/04/17 06/04/17 06/04/17 13:00 13:06 13:35 Temperature 98.4 F Heart Rate [ 65 Brachial] Heart Rate [ Monitoring electrodes] Respiratory 18 Rate Blood Pressure 106/41 L [Brachial artery] Blood Pressure [Left Brachial artery] Blood Pressure [Right Brachial artery] O2 Saturation 97 98 99 06/04/17 06/04/17 06/04/17 14:09 14:41 15:25 Temperature 98.4 F 98.4 F 97.5 F L Heart Rate [ 107 H 66 65 Brachial] Heart Rate [ Monitoring electrodes] Respiratory 20 16 18 Rate Blood Pressure 128/61 122/54 L 116/57 L [Brachial artery] Blood Pressure [Left Brachial artery] Blood Pressure [Right Brachial artery] O2 Saturation 99 99 98 06/04/17 06/04/17 06/04/17 15:40 16:22 21:11 Temperature 98.1 F 99.1 F Heart Rate [ 72 84 85 Brachial] Heart Rate [ Monitoring electrodes] Respiratory 16 16 20 Rate Blood Pressure 121/64 [Brachial artery] Blood Pressure 102/50 L [Left Brachial artery] Blood Pressure 121/74 [Right Brachial artery] O2 Saturation 100 98 06/04/17 06/05/17 06/05/17 22:40 00:01 03:03 Temperature 97.9 F 98.4 F 99.0 F Heart Rate [ 57 L 77 63 Brachial] Heart Rate [ Monitoring electrodes] Respiratory 20 18 18 Rate Blood Pressure [Brachial artery] Blood Pressure [Left Brachial artery] Blood Pressure 105/44 L 132/70 H 110/52 L [Right Brachial artery] O2 Saturation 99 99 96 06/05/17 06/05/17 06/05/17 08:02 12:00 16:00 Temperature 97.9 F 98.6 F 98.6 F Heart Rate [ 63 73 60 Brachial] Heart Rate [ Monitoring electrodes] Respiratory 18 18 18 Rate Blood Pressure [Brachial artery] Blood Pressure 142/73 H [Left Brachial artery] Blood Pressure 124/57 L 113/77 [Right Brachial artery] O2 Saturation 99 100 100 06/05/17 06/05/17 06/06/17 19:00 23:56 05:55 Temperature 98.1 F 97.9 F 97.7 F Heart Rate [ 64 74 64 Brachial] Heart Rate [ Monitoring electrodes] Respiratory 18 16 18 Rate Blood Pressure [Brachial artery] Blood Pressure 120/69 [Left Brachial artery] Blood Pressure 114/79 105/50 L [Right Brachial artery] O2 Saturation 100 99 99 06/06/17 06/06/17 06/06/17 09:00 12:27 15:18 Temperature 97.7 F 98.8 F 97.9 F Heart Rate [ 65 89 Brachial] Heart Rate [ 74 Monitoring electrodes] Respiratory 16 16 16 Rate Blood Pressure [Brachial artery] Blood Pressure 129/65 [Left Brachial artery] Blood Pressure 116/57 L 120/58 L [Right Brachial artery] O2 Saturation 98 99 100 06/06/17 06/07/17 06/07/17 19:00 01:14 05:00 Temperature 98.4 F 97.5 F L 98.1 F Heart Rate [ 80 87 Brachial] Heart Rate [ 76 Monitoring electrodes] Respiratory 18 18 18 Rate Blood Pressure [Brachial artery] Blood Pressure [Left Brachial artery] Blood Pressure 144/85 H 143/81 H 155/94 H [Right Brachial artery] O2 Saturation 99 98 99 06/07/17 07:46 Temperature 98.6 F Heart Rate [ 73 Brachial] Heart Rate [ Monitoring electrodes] Respiratory 20 Rate Blood Pressure [Brachial artery] Blood Pressure [Left Brachial artery] Blood Pressure 126/66 [Right Brachial artery] O2 Saturation 99 General: Cooperative, Mild distress, Other (Drowsy,) HEENT: EOMI, Other (Mucous membranes dry) Lungs: Other (By basilar rales; no other lobular finding; poor respiratory effort and air movement; Demonstrated the use of incentive spirometry and patient instructed to use every hour) Abdomen: Other (Mild distention with tympany, Markedly decreased to absent bowel sounds; Wound VAC dressing dry and secure) Extremities: No edema Skin: No rashes Neurological: Normal speech (Speech somewhat labored), Sensation intact Psych/Mental Status: Other (Patient expresses anxiety) Assessment/Plan - Assessment/Plan Assessment: Postoperatively patient has had a slow recovery due to difficulty in controlling pain and nausea. For a while she had an epidural but since his shifted to a combination of Dilaudid and Tylenol. Oral opioids were not well tolerated and Dilaudid now given occasionally IV with oral Celebrex. Patient tends to retch up oral medications and has clinical & laboratory evidence of dehydration. She currently has bowel findings consistent with ileus however abdominal flat plate does not show obstruction. Patient was anemic preop and anticipate that she is more so now despite a near normal hemoglobin of 11 g. Patient was laying in bed without compression boots on and given post abdominal surgery is at risk for probable embolic complication. Plan: Ileus Patient will be made n.p.o. except for ice chips until her bowel tones return. Will continue the GI protocol if the patient can tolerate. Will encourage the patient to ambulate and become more active. If GI motility does not begin to return by late afternoon will place NG tube. Opioid sensitivity is a problem slowing the return of normal GI function Pain and nausea control Patient is sensitive to opioid and has had a chronic problem with nausea and vomiting. Opioids cause retching which causes wound pain which causes more opioid use to form a positive feedback loop. Acute pain in turn boost anxiety which amplifies perceptions of pain. Current opioid use should be tapered / limited and alternative meds such as Toradol substituted. Periodic Xanax will be useful in modulating pain. Patient's nausea has responded somewhat to Compazine Rectal suppositories. Will make adjustment to patient's analgesia control medications. Intend to consult anesthesia. Atelectasis Lack of movement and mild sedation has caused atelectasis which may account for her night sweats and elevation of white count. Patient not using incentive spirometry on a regular basis. Aggressive pulmonary toilet is necessary to prevent pneumonia.
--- NOTE | 2017-06-07 10:23 | PROVIDER PROGRESS NOTE ---
Subjective - Prog Note Date Prog Note Date: 06/07/17 Prog Note Time: 10:45 - Subjective Pt reports feeling: No change Subjective: I am uncertain with her postconcussive head trauma if antiseizure medication is necessary. However, for safety sake will continue Keppra. Patient's: Is full stool and a fleets enema with mineral oil will help minimize stool hardening/ impaction. If patient does not improve by early evening we will ask for a medical consult. In brief her problems are: * Pain/nausea control; * Ileus; * Mild dehydration; * Atelectasis; * Postconcussion head injury (past) Discussed plan with patient's nurse Objective - Vital Signs/Intake & Output Vital Signs: Vital Signs x48h Temp Pulse Resp BP Pulse Ox 06/07/17 07:46 98.6 F 73 20 126/66 99 06/07/17 05:00 98.1 F 87 18 155/94 H 99 Intake & Output: Intake & Output 06/04/17 06/05/17 06/06/17 06/07/17 23:59 23:59 23:59 23:59 Intake Total 1080 3400 2220 200 Output Total 1415 2850 2900 100 Balance -335 550 -680 100 - Lab Results Fish Bones: 06/07/17 05:47 06/07/17 05:47 Other Labs: Lab Results x24hrs 06/07/17 06/07/17 Range/Units 05:47 05:47 WBC 14.9 H (4.8-10.8) x10^3/uL RBC 4.28 (4.20-5.40) 10^6/uL Hgb 11.0 L (12.0-16.0) g/dL Hct 34.3 L (37.0-47.0) % MCV 80.1 L (81.0-99.0) fL MCH 25.7 L (27.0-31.0) pg MCHC 32.1 (32.0-36.0) g/dL RDW 14.7 (12.0-15.0) % Plt Count 356 (130-450) 10^3/uL MPV 8.3 (7.9-10.8) fL Neut # Not Reportable Lymph # Not Reportable [place] # Not Reportable Eos # Not Reportable Baso # Not Reportable Absolute Nucleated RBC Not Reportable Total Counted 100 Band Neuts % (Manual) 1 (0 - 10) % Nucleated RBC % Not Reportable Neutrophils # (Manual) 13.3 H (1.5-6.6) 10^3/uL Lymphocytes # (Manual) 1.2 L (1.5-3.5) 10^3/uL Monocytes # (Manual) 0.4 (0.0-1.0) 10^3/uL Differential Comment MANUAL DIFFERENTIAL Platelet Estimate NORMAL (130-450,000) (NORMAL) RBC Morph Micro Appear NORMAL APPEARANCE (NORMAL) Sodium 138 (135-145) mmol/L Potassium 4.0 (3.5-5.0) mmol/L Chloride 102 (101-111) mmol/L Carbon Dioxide 23 (21-32) mmol/L Anion Gap 13.0 (6-13) BUN 12 (6-20) mg/dL Creatinine 1.7 H (0.4-1.0) mg/dL Estimated GFR (MDRD) 34 L (>89) Glucose 150 H (70-100) mg/dL Calcium 8.9 (8.5-10.3) mg/dL Total Bilirubin 0.5 (0.2-1.0) mg/dL AST 24 (10-42) IU/L ALT 27 (10-60) IU/L Alkaline Phosphatase 60 (42-121) IU/L Total Protein 7.2 (6.7-8.2) g/dL Albumin 3.6 (3.2-5.5) g/dL Globulin 3.6 (2.1-4.2) g/dL Albumin/Globulin Ratio 1.0 (1.0-2.2)
[2017-06-07] MEDS ORDERED: MINERAL OIL ENEMA 133 ML BOTTLE RC SCH ×2 (11:00→14:00)
[2017-06-07] MEDS: KETOROLAC 15 MG/ML VIAL IVP SCH ×2 (11:25→18:09)
[2017-06-07] MEDS ORDERED: SODIUM CHLORIDE FLUSH 0.9% 10 ML SYRINGE IVP ONE (11:26)
[2017-06-07] MEDS ORDERED: SOAP SUDS ENEMA 1 EACH RC SCH (18:14)
--- NOTE | 2017-06-07 18:20 | PROVIDER PROGRESS NOTE ---
Subjective - Prog Note Date Prog Note Date: 06/07/17 Prog Note Time: 06:15 - Subjective Pt reports feeling: No change (Patient is had fleets enema with mineral oil on 2 occasions this afternoon. She is not expelled the enemas. She remains distended slightly more than this morning. Bowel sounds are minimal to nil. Discussed beginning NG tube but patient is hesitant. She will attempt another enema soapsuds. I will evaluate her later tonight: if she continues to distend and bowel tones do not return an NG tube is unavoidable. Encouraged patient to walk and walk the halls if possible. Discussed plan with nursing.) Objective - Vital Signs/Intake & Output Vital Signs: Vital Signs x48h Temp Pulse Resp BP Pulse Ox 06/07/17 15:33 97.3 F L 83 18 118/63 97 06/07/17 12:09 97.7 F 84 16 143/73 H 98 Intake & Output: Intake & Output 06/04/17 06/05/17 06/06/17 06/07/17 23:59 23:59 23:59 23:59 Intake Total 1080 3400 2220 1300 Output Total 1415 2850 2900 700 Balance -335 550 -680 600 - Lab Results Fish Bones: 06/07/17 05:47 06/07/17 05:47 Other Labs: Lab Results x24hrs 06/07/17 06/07/17 Range/Units 05:47 05:47 WBC 14.9 H (4.8-10.8) x10^3/uL RBC 4.28 (4.20-5.40) 10^6/uL Hgb 11.0 L (12.0-16.0) g/dL Hct 34.3 L (37.0-47.0) % MCV 80.1 L (81.0-99.0) fL MCH 25.7 L (27.0-31.0) pg MCHC 32.1 (32.0-36.0) g/dL RDW 14.7 (12.0-15.0) % Plt Count 356 (130-450) 10^3/uL MPV 8.3 (7.9-10.8) fL Neut # Not Reportable Lymph # Not Reportable [place] # Not Reportable Eos # Not Reportable Baso # Not Reportable Absolute Nucleated RBC Not Reportable Total Counted 100 Band Neuts % (Manual) 1 (0 - 10) % Nucleated RBC % Not Reportable Neutrophils # (Manual) 13.3 H (1.5-6.6) 10^3/uL Lymphocytes # (Manual) 1.2 L (1.5-3.5) 10^3/uL Monocytes # (Manual) 0.4 (0.0-1.0) 10^3/uL Differential Comment MANUAL DIFFERENTIAL Platelet Estimate NORMAL (130-450,000) (NORMAL) RBC Morph Micro Appear NORMAL APPEARANCE (NORMAL) Sodium 138 (135-145) mmol/L Potassium 4.0 (3.5-5.0) mmol/L Chloride 102 (101-111) mmol/L Carbon Dioxide 23 (21-32) mmol/L Anion Gap 13.0 (6-13) BUN 12 (6-20) mg/dL Creatinine 1.7 H (0.4-1.0) mg/dL Estimated GFR (MDRD) 34 L (>89) Glucose 150 H (70-100) mg/dL Calcium 8.9 (8.5-10.3) mg/dL Total Bilirubin 0.5 (0.2-1.0) mg/dL AST 24 (10-42) IU/L ALT 27 (10-60) IU/L Alkaline Phosphatase 60 (42-121) IU/L Total Protein 7.2 (6.7-8.2) g/dL Albumin 3.6 (3.2-5.5) g/dL Globulin 3.6 (2.1-4.2) g/dL Albumin/Globulin Ratio 1.0 (1.0-2.2)
[2017-06-07] MEDS ORDERED: BISACODYL 10 MG SUPP PR SCH (19:32)
[2017-06-07] MEDS ORDERED: GLYCERIN ADULT SUPP PR SCH (19:32)
[2017-06-07] MEDS: levETIRAcetam 250 MG TABLET PO SCH (22:13)
[2017-06-08] MEDS: KETOROLAC 15 MG/ML VIAL IVP SCH ×4 (00:01→18:05)
[2017-06-08] MEDS ORDERED: SODIUM CHLORIDE FLUSH 0.9% 10 ML SYRINGE IVP ONE ×4 (00:02→16:20)
[2017-06-08] MEDS: HYDROmorphone 0.5 MG/0.5 ML SYRINGE IVP PRN ×5 (03:06→20:48)
[2017-06-08] MEDS: LACTATED RINGERS 1,000 ML IV SCH ×4 (03:20→18:51)
[2017-06-08 06:49] LABS: BASOPHILS # (AUTO) 0.1 10^3/uL (0.0-0.1); BASOPHILS % (AUTO) 0.4 %; EOSINOPHILS # (AUTO) 0.1 10^3/uL (0.0-0.7); EOSINOPHILS % (AUTO) 1.2 %; HCT - HEMATOCRIT 29.2 % (37.0-47.0); HGB - HEMOGLOBIN 9.4 g/dL (12.0-16.0); LYMPHOCYTES % (AUTO) 16.9 %; MEAN CORPUSCULAR HEMOGLOBIN 25.9 pg (27.0-31.0); MEAN CORPUSCULAR HGB CONC 32.2 g/dL (32.0-36.0); MEAN CORPUSCULAR VOLUME 80.3 fL (81.0-99.0); MEAN PLATELET VOLUME 7.8 fL (7.9-10.8); MONOCYTES # (AUTO) 0.9 10^3/uL (0.0-1.0); MONOCYTES % (AUTO) 7.5 %; NEUTROPHILS # (AUTO) 8.6 10^3/uL (1.5-6.6); RED BLOOD COUNT 3.63 10^6/uL (4.20-5.40); UNCORRECTED WHITE BLOOD COUNT 11.6 x10^3/uL; WHITE BLOOD COUNT 11.6 x10^3/uL (4.8-10.8)
[2017-06-08 07:10] LABS: ALBUMIN/GLOBULIN RATIO 1.1 (1.0-2.2); BILIRUBIN,TOTAL 0.4 mg/dL (0.2-1.0); CALCIUM 8.5 mg/dL (8.5-10.3); CREATININE 4.1 mg/dL (0.4-1.0); POTASSIUM 3.5 mmol/L (3.5-5.0); TOTAL PROTEIN 6.2 g/dL (6.7-8.2)
[2017-06-08] MEDS: ONDANSETRON 4 MG/2 ML VIAL IVP PRN ×4 (08:34→20:57)
--- NOTE | 2017-06-08 09:33 | CT Preliminary Report ---
Exam: CT ABDOMEN/PELVIS W/O IMPRESSION: 1. Status post recent total hysterectomy with a moderate amount of free simple fluid throughout the a bdomen and pelvis, more than would be expected postsurgically. No evidence of hemorrhage. Question ur eteral injury in the presence of increasing creatinine. A urology consultation may be of benefit. 2. Postsurgical changes including multiple tiny locules of air in the nondependent portion of the abd omen and pelvis which is within expected limits given the patient's recent surgery. 3. Multiple loops of air-filled distended colon have resolved since the prior examination. No evidenc e of bowel obstruction or ileus. Findings were discussed with Dr. Torres by phone on 06/08/2017 at 9:15 AM [facility] SITE ID: [id number]
--- NOTE | 2017-06-08 09:36 | CT Report ---
EXAM: CT ABDOMEN AND PELVIS EXAM DATE: 06/08/2017 09:05 AM. CLINICAL HISTORY: Bloody urine s/p hysterectomy. Rising creatinine with unremitting nausea and concer n for ureteral injury. COMPARISONS: Abdominal radiograph dated 06/07/2017. TECHNIQUE: Routine helical CT imaging was performed through the abdomen and pelvis. IV contrast: None . Enteric contrast: No. Reconstructions: Coronal and sagittal. In accordance with CT protocol optimization, one or more of the following dose reduction techniques w ere utilized for this exam: automated exposure control, adjustment of mA and/or KV based on patient s ize, or use of iterative reconstructive technique. FINDINGS: Lung Bases: Unremarkable. Liver: Normal. No masses. Gallbladder/Bile Ducts: Cholecystectomy. Spleen: Normal. Pancreas: Normal. Adrenal Glands: Normal. Kidneys: Normal. No masses or hydronephrosis. Peritoneal Cavity/Bowel: There is a moderate amount of free fluid in the abdomen and pelvis measuring simple fluid in attenuation. Multiple tiny locules of air in the nondependent portion of the abdomen and along the anterior pelvis. No bowel obstruction. The multiple loops of air-filled distended larg e bowel have resolved from the prior examination. The appendix is not visualized. Pelvic Organs: The bladder is unremarkable. The patient is status post hysterectomy. Vasculature: No aneurysms or other significant abnormality. Bones: No significant abnormality. Other: Postsurgical changes along the anterior pelvis. IMPRESSION: 1. Status post recent total hysterectomy with a moderate amount of free simple fluid throughout the a bdomen and pelvis, more than would be expected postsurgically. No evidence of hemorrhage. Question ur eteral injury in the presence of increasing creatinine. A urology consultation may be of benefit. 2. Postsurgical changes including multiple tiny locules of air in the nondependent portion of the abd omen and pelvis which is within expected limits given the patient's recent surgery. 3. Multiple loops of air-filled distended colon have resolved since the prior examination. No evidenc e of bowel obstruction or ileus. Findings were discussed with Dr. Torres by phone on 06/08/2017 at 9:15 AM [facility] Referring Provider Line: [phone] SITE ID: [id number]
--- NOTE | 2017-06-08 10:24 | PROVIDER PROGRESS NOTE ---
Subjective - General Admit Date: 06/04/17 Procedure Date: 06/04/17 Post Op Days: 4 Procedure Performed: Total abdominal hysterectomy, bilateral salpingectomy, lysis of adhesions// - Review of Systems Wound/Incisions: positive: Healing well, Drainage (No drainage or skin wound complaints) Drain Type: Wound VAC to Laparotomy wound -- Functional; Mclaughlin catheter discontinued General: positive: Weakness (Patient still weak but beginning to ambulate more) , Malaise, Appetite HEENT: positive: No symptoms Pulmonary: positive: No symptoms Cardiovascular: positive: No symptoms Gastrointestinal: positive: Nausea (Decreased compared to yesterday), Vomiting ( Decreased compared to yesterday), Abdominal pain (Patient rates abdominal pain 5 /10 Centered around the operative site in the midline) Genitourinary: positive: Retention (Last to 8 hour blocks urine output not recorded but stated to be around 300.), Other (Hematuria Yesterday late afternoon and evening slight red tinge to urine has turned darker red this morning) Musculoskeletal: positive: No symptoms Skin: positive: No symptoms Psychiatric: positive: Anxiety (Sublingual Xanax was prescribed every 6 yesterday; Only used once) - Other Other Information/Narrative: Patient feels improved from yesterday with the ability to ambulate about the room. She expelled some enema fluid and shards of palatine used stool but the return was not as great as expected. Bloating continues and urine noted to be darker and somewhat reddish by patient. Nursing alerted me to increase in serum creatinine/BUN. Objective - Patient Data Vital Signs: Vital Signs x48h Temp Pulse Resp BP Pulse Ox 06/08/17 08:24 97.9 F 71 17 139/73 H 99 Weight: Weight 06/06/17 06/07/17 06/08/17 23:59 23:59 23:59 Weight (kg) 82 kg 89.5 kg Intake & Output: Intake and Output Totals x24h 06/06/17 06/07/17 06/08/17 23:59 23:59 23:59 Intake Total 2220 2450 1000 Output Total 2900 700 Balance -680 1750 1000 - Lab Results Lab Results: 06/08/17 06:42 06/08/17 06:42 Other Lab Results: Lab Results x24hrs 06/08/17 06/08/17 Range/Units 06:42 06:42 WBC 11.6 H (4.8-10.8) x10^3/uL RBC 3.63 L (4.20-5.40) 10^6/uL Hgb 9.4 L (12.0-16.0) g/dL Hct 29.2 L (37.0-47.0) % MCV 80.3 L (81.0-99.0) fL MCH 25.9 L (27.0-31.0) pg MCHC 32.2 (32.0-36.0) g/dL RDW 15.0 (12.0-15.0) % Plt Count 380 (130-450) 10^3/uL MPV 7.8 L (7.9-10.8) fL Neut # 8.6 H (1.5-6.6) 10^3/uL Lymph # 2.0 (1.5-3.5) 10^3/uL [place] # 0.9 (0.0-1.0) 10^3/uL Eos # 0.1 (0.0-0.7) 10^3/uL Baso # 0.1 (0.0-0.1) 10^3/uL Absolute Nucleated RBC 0.00 x10^3/uL Nucleated RBC % 0.0 /100WBC Sodium 138 (135-145) mmol/L Potassium 3.5 (3.5-5.0) mmol/L Chloride 103 (101-111) mmol/L Carbon Dioxide 23 (21-32) mmol/L Anion Gap 12.0 (6-13) BUN 27 H (6-20) mg/dL Creatinine 4.1 H (0.4-1.0) mg/dL Estimated GFR (MDRD) 12 L (>89) Glucose 91 (70-100) mg/dL Calcium 8.5 (8.5-10.3) mg/dL Total Bilirubin 0.4 (0.2-1.0) mg/dL AST 25 (10-42) IU/L ALT 25 (10-60) IU/L Alkaline Phosphatase 45 (42-121) IU/L Total Protein 6.2 L (6.7-8.2) g/dL Albumin 3.2 (3.2-5.5) g/dL Globulin 3.0 (2.1-4.2) g/dL Albumin/Globulin Ratio 1.1 (1.0-2.2) - Current Medications Current Medications: Current Medications Generic Name Dose Route Start Last Admin Trade Name Freq PRN Reason Stop Dose Admin Hydromorphone HCl 2 mg 06/06/17 22:13 06/08/17 08:34 Dilaudid Inj Syringe IVP 2 mg Q4H PRN Administration PAIN Acetaminophen 100 mls @ 400 mls/hr 06/07/17 02:05 06/07/17 16:05 Ofirmev IV Infused Q6HR PRN Infusion PAIN Lactated Ringer's 1,000 mls @ 166 mls/hr 06/07/17 08:00 06/08/17 03:20 Lr IV 166 mls/hr .Q6H2M KERA Administration Ketorolac Tromethamine 15 mg 06/07/17 12:00 06/08/17 05:52 Toradol Inj IVP 06/10/17 11:59 15 mg Q6HR KERA Administration Levetiracetam 250 mg 06/07/17 21:00 06/07/17 22:13 Keppra PO 250 mg BID KERA Administration Ondansetron HCl 4 mg 06/07/17 13:39 06/08/17 08:34 Zofran Inj IVP 4 mg Q4HR PRN Administration Nausea / Vomiting Prochlorperazine Maleate 25 mg 06/06/17 22:06 06/07/17 02:37 Compazine Supp ME 25 mg BID PRN Administration Nausea / Vomiting Scopolamine HBr 1 patch 06/05/17 19:00 06/05/17 19:03 Transderm-Scop TOP Not Given Q3D [facility] Exam - Exam Vital Signs: Vital Signs (72 hours) 06/05/17 06/05/17 06/05/17 12:00 16:00 19:00 Temperature 98.6 F 98.6 F 98.1 F Heart Rate [ 73 60 64 Brachial] Heart Rate [ Monitoring electrodes] Respiratory 18 18 18 Rate Blood Pressure 142/73 H 120/69 [Left Brachial artery] Blood Pressure 113/77 [Right Brachial artery] O2 Saturation 100 100 100 06/05/17 06/06/17 06/06/17 23:56 05:55 09:00 Temperature 97.9 F 97.7 F 97.7 F Heart Rate [ 74 64 65 Brachial] Heart Rate [ Monitoring electrodes] Respiratory 16 18 16 Rate Blood Pressure 129/65 [Left Brachial artery] Blood Pressure 114/79 105/50 L [Right Brachial artery] O2 Saturation 99 99 98 06/06/17 06/06/17 06/06/17 12:27 15:18 19:00 Temperature 98.8 F 97.9 F 98.4 F Heart Rate [ 89 Brachial] Heart Rate [ 74 76 Monitoring electrodes] Respiratory 16 16 18 Rate Blood Pressure [Left Brachial artery] Blood Pressure 116/57 L 120/58 L 144/85 H [Right Brachial artery] O2 Saturation 99 100 99 06/07/17 06/07/17 06/07/17 01:14 05:00 07:46 Temperature 97.5 F L 98.1 F 98.6 F Heart Rate [ 80 87 73 Brachial] Heart Rate [ Monitoring electrodes] Respiratory 18 18 20 Rate Blood Pressure [Left Brachial artery] Blood Pressure 143/81 H 155/94 H 126/66 [Right Brachial artery] O2 Saturation 98 99 99 06/07/17 06/07/17 06/07/17 12:09 15:33 19:14 Temperature 97.7 F 97.3 F L 99.0 F Heart Rate [ 84 83 Brachial] Heart Rate [ 80 Monitoring electrodes] Respiratory 16 18 16 Rate Blood Pressure [Left Brachial artery] Blood Pressure 143/73 H 118/63 149/76 H [Right Brachial artery] O2 Saturation 98 97 99 06/07/17 06/08/17 23:50 08:24 Temperature 97.5 F L 97.9 F Heart Rate [ 71 Brachial] Heart Rate [ 65 Monitoring electrodes] Respiratory 16 17 Rate Blood Pressure [Left Brachial artery] Blood Pressure 139/71 H 139/73 H [Right Brachial artery] O2 Saturation 98 99 General: Alert, Oriented x3, Cooperative HEENT: EOMI, Mucous membr. moist/pink Lungs: Clear to auscultation Cardiovascular: Regular rate, Normal S1, Normal S2, No murmurs Abdomen: Normal bowel sounds (Diminished slightly, no gushes rushes or high- pitched sounds), Other (Mild distention continues but improved since last night' s exam. Bowel sounds have improved and are near normal. Wound dry intact and wound VAC functional.) Extremities: No cyanosis, No edema, Normal pulses, Other (Somewhat cool) Skin: No rashes Neurological: Normal speech, Normal tone, Sensation intact, Reflexes 2+ Psych/Mental Status: Mental status NL Assessment/Plan - Assessment/Plan Assessment: Concerns about urinary tract injury Combination of findings to include ileus, rising creatinine/BUN, Hematuria and free fluid in the abdomen is highly suspect for urinary tract injury. The level of the injury is not apparent bladder or ureter. Retrograde cystogram with dye could effectively Bladder injury / Cystostomy and thereby raises concerns of ureteric injury. If ureteric injury exist it is most likely complete transection with a leak into the peritoneal cavity. Repair ureter injury would require urology. If the cystostomy is small prolonged Mclaughlin use could provide a non-operative treatment. Ileus Ileus is improving post adenoma though the amount of expulsion of affluent is not as great as expected. High creatinine potentiates ileus And potential urinary tract injury needs to be addressed to remedy hyper creatinine anemia. Will continue N.p.o. status. Atelectasis Improved/resolved Post Concussion Syndrome Patient is done well with Discontinuation of her drug cocktail. It has been since immediately after her head injury that she had her seizure.She is scheduled for a neurology evaluation in July. Would recommend EEG and reconsideration of the requirement for Keppra. Will continue Keppra during this hospitalization. Plan: * I will reinsert Mclaughlin and begin tracking urine output closely. Recommend that a urinalysis be sent from Mclaughlin drainage immediately. * Retrograde CT cystogram to rule out bladder injury /cystotomy * Encourage continued ambulation * Encourage sublingual Xanax use as necessary to control anxiety * Internal medicine consult * Phone call in to Dr. Liv Guerrero, Urology [phone] * If bladder injury discovered, I will insert Mclaughlin catheter as first-line conservative therapy. Possibly a Cystoscopy here to determine the size of the defect. * If ureter injury is suspect then transfer to urology for repair
[2017-06-08] MEDS: levETIRAcetam 250 MG TABLET PO SCH ×2 (10:30→20:46)
[2017-06-08] MEDS ORDERED: IOPAMIDOL-300 100 ML VIAL ONE ×2 (11:05→12:38)
[2017-06-08] MEDS: LORazepam 0.5 MG TABLET SL PRN ×2 (11:24→18:05)
[2017-06-08] MEDS: ACETAMINOPHEN 1,000 MG/100 ML 100 ML IV PRN (11:54)
[2017-06-08] MEDS ORDERED: IOPAMIDOL-300 100 ML VIAL IVP ONE ×2 (13:39→13:49)
[2017-06-08 13:46] LABS: BILIRUBIN,URINE SMALL (NEGATIVE)
[2017-06-08 13:51] LABS: UR CULTURE IF IND INDICATED; WBC,URINE >25 /HPF (0-5)
--- NOTE | 2017-06-08 14:09 | CT Preliminary Report ---
Exam: CT ABDOMEN/PELVIS W/O IMPRESSION: 1. Findings consistent with a bladder leak and a 3 mm open defect in the urinary bladder dome. The co ntrast material from the cystogram spills freely into the peritoneal cavity. Ureters appear normal by noncontrast CT. KISHAA The above critical findings were discussed with Melissa by Dr. Ernst Tuttle at 14:07 hrs on 08/08/16. SITE ID: [id number]
--- NOTE | 2017-06-08 14:12 | CT Report ---
EXAM: CT ABDOMEN AND PELVIS EXAM DATE: 06/08/2017 01:32 PM. CLINICAL HISTORY: Rising creat, and bladder versus ureteral injury. COMPARISONS: 06/08/2017. TECHNIQUE: Routine helical CT imaging was performed through the abdomen and pelvis. IV contrast: None . Enteric contrast: No. Retrograde contrast administered through Mclaughlin catheter into bladder. 75 mL o f Isovue-300 IV with 425 cc sterile saline administered through catheter. Reconstructions: Coronal an d sagittal. In accordance with CT protocol optimization, one or more of the following dose reduction techniques w ere utilized for this exam: automated exposure control, adjustment of mA and/or KV based on patient s ize, or use of iterative reconstructive technique. FINDINGS: Lung Bases: Unremarkable. Liver: Normal in size and contour. Gallbladder/Bile Ducts: The gallbladder surgically absent. Spleen: Normal in size and contour. Pancreas: Normal in size and contour. Adrenal Glands: Normal. Kidneys: The kidneys are normal in size. No stones or hydronephrosis. Both ureters are normal in marcel eunice. No reflux of contrast into the ureters. Peritoneal Cavity/Bowel: There is a small to moderate volume of contrast material within the peritone al cavity. There is a small amount of pneumoperitoneum. Findings consistent with bladder leak. Pelvic Organs: There is a focal defect in the dome of the bladder seen on sagittal image 38 and axial image 75. This defect measures approximately 3 mm in diameter. The urinary bladder is only partly di stended. There is contrast material within the bladder and within the adjacent peritoneal cavity. [place] elba is absent. Vasculature: Abdominal aorta is normal in caliber. Bones: No significant abnormality. Other: None. IMPRESSION: 1. Findings consistent with a bladder leak and a 3 mm open defect in the urinary bladder dome. The co ntrast material from the cystogram spills freely into the peritoneal cavity. Ureters appear normal by noncontrast CT. RADIA The above critical findings were discussed with Melissa by Dr. Ernst Tuttle at 14:07 hrs on 08/08/16. Referring Provider Line: [phone] SITE ID: [id number]
[2017-06-08] MEDS ORDERED: DOCUSATE SODIUM 250 MG CAPSULE PO SCH (16:00)
--- NOTE | 2017-06-08 17:15 | PROVIDER PROGRESS NOTE ---
Subjective - Prog Note Date Prog Note Date: 06/08/17 Prog Note Time: 05:00 - Subjective Pt reports feeling: Improved (Retrograde CT cystometrogram found a 4 mm hole in the dome of the bladder With free spill of urine into the abdominal cavity. A 4 mm bladder defect should not pose a incarceration risk and respond to conservative treatment 2 weeks of Mclaughlin bladder rest. Nitrofurantoin 50 mg daily could be used as prophylaxis. Holding further Toradol doses until creatinine improves. In 12 days patient should submit a culture of urine reva. Prior to discontinuation of the Mclaughlin another CT retrograde cystogram should be done to ensure bladder integrity. Reviewed plan with patient and family. All questions were answered. Reviewed CT results and plan with Dr. Guerrero ([facility] urology) and he concurs. He did not believe the nitrofurantoin was necessary and could select out pathogens over time. He also does not believe there is danger of renal damage or failure. I will not renew nitrofurantoin prescription. Patient sitting in bed with in attendance. Reviewed all the available facts and plan of care. Mclaughlin draining blood-tinged urine. Discussed case with hospitalist who will see the patient for a general evaluation.) Objective - Vital Signs/Intake & Output Vital Signs: Vital Signs x48h Temp Pulse Pulse Resp BP BP Pulse Ox 06/08/17 15:19 97.7 F 68 18 119/72 99 06/08/17 12:09 98.4 F 78 16 137/81 H 98 Intake & Output: Intake & Output 06/05/17 06/06/17 06/07/17 06/08/17 23:59 23:59 23:59 23:59 Intake Total 3400 2220 2450 2462.433 Output Total 2850 2900 700 3550 Balance 550 -680 1750 -1087.567 - Lab Results Fish Bones: 06/08/17 06:42 06/08/17 06:42 Other Labs: Lab Results x24hrs 06/08/17 06/08/17 06/08/17 Range/Units 13:15 06:42 06:42 WBC 11.6 H (4.8-10.8) x10^3/uL RBC 3.63 L (4.20-5.40) 10^6/uL Hgb 9.4 L (12.0-16.0) g/dL Hct 29.2 L (37.0-47.0) % MCV 80.3 L (81.0-99.0) fL MCH 25.9 L (27.0-31.0) pg MCHC 32.2 (32.0-36.0) g/dL RDW 15.0 (12.0-15.0) % Plt Count 380 (130-450) 10^3/uL MPV 7.8 L (7.9-10.8) fL Neut # 8.6 H (1.5-6.6) 10^3/uL Lymph # 2.0 (1.5-3.5) 10^3/uL [place] # 0.9 (0.0-1.0) 10^3/uL Eos # 0.1 (0.0-0.7) 10^3/uL Baso # 0.1 (0.0-0.1) 10^3/uL Absolute Nucleated RBC 0.00 x10^3/uL Nucleated RBC % 0.0 /100WBC Sodium 138 (135-145) mmol/L Potassium 3.5 (3.5-5.0) mmol/L Chloride 103 (101-111) mmol/L Carbon Dioxide 23 (21-32) mmol/L Anion Gap 12.0 (6-13) BUN 27 H (6-20) mg/dL Creatinine 4.1 H (0.4-1.0) mg/dL Estimated GFR (MDRD) 12 L (>89) Glucose 91 (70-100) mg/dL Calcium 8.5 (8.5-10.3) mg/dL Total Bilirubin 0.4 (0.2-1.0) mg/dL AST 25 (10-42) IU/L ALT 25 (10-60) IU/L Alkaline Phosphatase 45 (42-121) IU/L Total Protein 6.2 L (6.7-8.2) g/dL Albumin 3.2 (3.2-5.5) g/dL Globulin 3.0 (2.1-4.2) g/dL Albumin/Globulin Ratio 1.1 (1.0-2.2) Urine Color RED/BLOODY Urine Clarity BLOODY (CLEAR) Urine pH 7.0 (5.0-7.5) PH Ur Specific [place] 1.020 (1.002-1.030) Urine Protein >=300 H (NEGATIVE) mg/dL Urine Glucose (UA) NEGATIVE (NEGATIVE) mg/dL Urine Ketones 15 H (NEGATIVE) mg/dL Urine Occult Blood LARGE H (NEGATIVE) Urine Nitrite NEGATIVE (NEGATIVE) Urine Bilirubin SMALL H (NEGATIVE) Urine Urobilinogen 0.2 (NORMAL) (NORMAL) E.U./dL Ur Leukocyte Esterase NEGATIVE (NEGATIVE) Urine RBC TNTC H (0-5) /HPF Urine WBC >25 H (0-5) /HPF Ur Squamous Epith Cells NONE SEEN (<= Few) Urine Bacteria None Seen (None Seen) /HPF Urine Culture Comments INDICATED
[2017-06-08] MEDS ORDERED: POLYETHYLENE GLYCOL 3350 17 GM PACKET PO SCH (18:00)
[2017-06-08] MEDS: SCOPOLAMINE PATCH TOP SCH (19:02)
--- NOTE | 2017-06-08 19:19 | CONSULTATION NOTE ---
DATE OF CONSULTATION: 06/08/2017 00:00:00 REQUESTING PROVIDER: Dr. Torres, ORGANIZATIONAL PSYCHOLOGIST REASON FOR CONSULTATION: Acute kidney injury. HISTORY OF PRESENT ILLNESS: This is a 36-year-old white female with a history of postconcussive syndr ome, which occurred after she was in the [place], fell down 16 steps into a fountain, required roberto sfer back to the [place] for medical care where she was in a coma, had a seizure, had paralysis and has now recovered from many of these with residuals of weakness of her arms and legs, fatigue, o ccasional tremors, whiplash-type headaches over head and neck, and is being followed by a neurologist . She is on Keppra, pain medication and muscle relaxants. The patient also has a history of 6 abdominal surgeries, 4 C-sections, gallbladder surgery and now e recent surgery that she had several days ago. 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 Postoperatively, the patient has had waxing and waning nausea, vomiting and pain, has required a Fole y catheter initially, which was discontinued after approximately 3 days, medications for constipation . Yesterday a set of labs were checked that showed a creatinine of 1.7. She had abdominal imaging don e that showed possible ileus. This morning, she had blood tests done that showed the creatinine incre ased to 4.1, normal potassium at 3.5, white count of 11.6, hemoglobin of 9.4, down from 11.0 yesterda y. The patient also had CT of the abdomen and pelvis as well as a cystogram and the combined imaging shows that she had a distended bladder with approximately 3 mm tear in the dome of the bladder. She w as ordered to get a Mclaughlin catheter following this, and has had 3.5 liters output from her distended b ladder, and the Mclaughlin is in place now. I spoke to Dr. Torres, who indicated that the plan for this bladder tear is decompression of the urina ry bladder with a Mclaughlin catheter for 14 days and that the bladder should reseal, but if not, then she would get laparoscopic surgery to repair the bladder. The patient still has mild generalized pain in the abdomen, no nausea or vomiting at this time, she i s on only ice chips today for diet, and she did receive pain medications and antiemetics. ALLERGIES: NONE. CURRENT MEDICINES 1. Benadryl p.r.n. 2. Colace p.r.n. 3. Dilaudid p.r.n. 4. Toradol p.r.n. 5. Lactated Ringer's at 166 mL per hour. 6. Keppra 250 mg p.o. b.i.d. 7. Ativan p.r.n. 8. Macrobid 100 mg p.o. once given today. 9. Tylenol p.r.n. 10. Zofran p.r.n. 11. MiraLax. 12. Prochlorperazine suppository p.r.n. 13. Scopolamine patch topically every 3 days. 14. Senokot. 15. Soap suds enema. FAMILY HISTORY: Negative for early inheritable diseases. SOCIAL HISTORY: The patient is a nonsmoker now, quit 10 years ago, drinks very rare alcohol, a beer e very 2 months socially, and does not use illicit drugs. The patient lives with her . REVIEW OF SYSTEMS: There has been no fever since admission and postop. She denies any cardiopulmonary disease. She has known about adhesions as she is describing her history. She denies any other gastro intestinal problems or urinary symptoms before this. A comprehensive review of systems was done and o nly the positives are stated here. PHYSICAL EXAMINATION GENERAL: Reveals a white female who is in no distress, supine in bed. VITAL SIGNS: Blood pressure 119/72, pulse of 68 and sinus rhythm, afebrile, respiratory rate 18, oxyg en saturation 99% on room air. HEENT: Unremarkable, with moist oral mucosa. NECK: Shows no JVD, no carotid bruits, no thyromegaly, no lymphadenopathy. CHEST: Clear. HEART: Sounds are normal. ABDOMEN: Soft, not distended. She is tender to light touch in all quadrants. There is no rebound. She has decreased bowel sounds. EXTREMITIES: Legs have no edema. She has no calf tenderness, no cords. NEUROLOGICAL: Intact. LABORATORIES: Pertinent labs are reported above. IMAGING: Pertinent imaging is reported above. DIAGNOSES 1. Acute kidney injury. 2. Bladder distention. 3. Bladder tear (surgically created, suspected). 4. Post-concussive syndrome with leg weakness, tremors, and whiplash headaches. 5. Recent total abdominal hysterectomy, bilateral salpingo-oophorectomy. 6. Prior sections. RECOMMENDATIONS: I agree with maintaining the patient on good IV hydration since she recently could n ot take adequate oral intake due to nausea and vomiting. Stop any nephrotoxic medications. The list h as been reviewed and these current medications appear adequate. Agree with management of the obstruct yahaira uropathy with decompression of the bladder. Surgical management of the bladder tear will be manag ed by MANAGER CORPORATE RESPONSIBILITY. Follow her for a fever, and if she spikes a fever, then culture her. Agree with the urine culture that has already been sent, and treat for infection if this is found. Follow her BMP daily to watch the creatinine and for any hyperkalemia. Further recommendations will depend on her course. Thank you for allowing me to participate in the care of this patient. JOB #: [id number] EXT JOB #:[id number]
[2017-06-08] MEDS ORDERED: NITROFURANTOIN MACRO 100 MG CAPSULE PO SCH (21:00)
[2017-06-08] MEDS ORDERED: SENNA 8.6 MG TABLET PO SCH (21:00)
[2017-06-09] MEDS: ONDANSETRON 4 MG/2 ML VIAL IVP PRN ×2 (00:15→08:22)
[2017-06-09] MEDS: LACTATED RINGERS 1,000 ML IV SCH ×4 (00:15→19:40)
[2017-06-09] MEDS: KETOROLAC 15 MG/ML VIAL IVP SCH (00:15)
[2017-06-09] MEDS: HYDROmorphone 0.5 MG/0.5 ML SYRINGE IVP PRN ×4 (04:45→19:09)
[2017-06-09 06:11] LABS: CALCIUM 8.2 mg/dL (8.5-10.3); CREATININE 0.6 mg/dL (0.4-1.0); POTASSIUM 3.7 mmol/L (3.5-5.0)
[2017-06-09] MEDS ORDERED: SODIUM CHLORIDE FLUSH 0.9% 10 ML SYRINGE IVP ONE ×2 (08:14→15:04)
[2017-06-09] MEDS: LORazepam 0.5 MG TABLET SL PRN (08:49)
[2017-06-09] MEDS ORDERED: METHOCARBAMOL 500 MG TABLET PO PRN (09:21)
[2017-06-09] MEDS ORDERED: oxyCOD/ACETAMIN 5 MG/325 MG TABLET PO SCH (10:00)
[2017-06-09] MEDS ORDERED: METHOCARBAMOL 500 MG TABLET PO ONE (10:29)
[2017-06-09] MEDS ORDERED: oxyCOD/ACETAMIN 5 MG/325 MG TABLET PO ONE (10:33)
--- NOTE | 2017-06-09 12:04 | PROVIDER PROGRESS NOTE ---
Subjective - General Admit Date: 06/04/17 Procedure Date: 06/04/17 Post Op Days: 5 Procedure Performed: Total abdominal hysterectomy, bilateral salpingectomy, lysis of adhesions// - Review of Systems Wound/Incisions: positive: Healing well, Drainage (No drainage or skin wound complaints) Drain Type: Wound VAC to Laparotomy wound -- Functional; Mclaughlin Catheter reinserted HEENT: positive: No symptoms Pulmonary: positive: No symptoms Cardiovascular: positive: No symptoms Gastrointestinal: positive: Nausea (Decreased compared to yesterday), Abdominal pain (Patient rates abdominal pain 5/10 Centered around the operative site in the midline) Genitourinary: positive: Other (Hematuria Markedly lightened) Musculoskeletal: positive: No symptoms Skin: positive: No symptoms Psychiatric: positive: Anxiety (Sublingual Xanax was prescribed ever 6 hours) - Other Other Information/Narrative: Patient appears brighter and more alert than yesterday. Yesterday on 2 occasions we discussed the the cystotomy and CT findings confirming a small opening 3-4 mm. Patient states she wants the opening surgically closed and the Mclaughlin catheter out as soon as possible. She worries about her ability to care for her household with a Mclaughlin inserted. Patient states that she has 2 holes in her bladder and that the hospitalist urged bladder repair. I talked to the Hospitalist and she did not make that recommendation. I began a detailed 30 minute conversation with her mother present and her nurse , Urmila SINGH. The postoperative events were reviewed: Severe nausea and vomiting Post surgery with opioids, Epidural, Continued nausea and vomiting, and investigation of suspected urinary injury. The CT report was reviewed and that there is only a single 3-4 mm defect in the dome of the bladder. CT films were reviewed with in-house radiology for the second time and there is no second bladder puncture or defect. Given the size of the defect standard treatment is for bladder rest and 14 days of Mclaughlin, which is effective in the vast majority of cases. She responded that "The bladder should be repaired if the patient wants it." I offered the opinion that second surgery could be avoided with prolonged Mclaughlin drainage. Second surgery has all the risks: Anesthesia reaction,Infection, damage to internal viscera. Additionally second surgery would not allow her to escape fully since it is standard practice to drain the bladder for 10 days post cystotomy repair. I will consult Dr. Kevwitch again for second opinion concerning her demands for cystotomy repair and possible transfer of care. Objective - Patient Data Vital Signs: Vital Signs x48h Temp Pulse Resp BP BP Pulse Ox 06/09/17 08:59 97.5 F L 91 16 123/70 100 06/09/17 05:35 97.9 F 63 16 113/63 99 Weight: Weight 06/07/17 06/08/17 06/09/17 23:59 23:59 23:59 Weight (kg) 82 kg 89.5 kg 90 kg Intake & Output: Intake and Output Totals x24h 06/07/17 06/08/17 06/09/17 23:59 23:59 23:59 Intake Total 2450 3460.000 2916.867 Output Total 700 4775 500 Balance 1750 -1579.417 5969.867 - Lab Results Lab Results: 06/08/17 06:42 06/09/17 05:45 Other Lab Results: Lab Results x24hrs 06/09/17 06/08/17 Range/Units 05:45 13:15 Sodium 140 (135-145) mmol/L Potassium 3.7 (3.5-5.0) mmol/L Chloride 105 (101-111) mmol/L Carbon Dioxide 28 (21-32) mmol/L Anion Gap 7.0 (6-13) BUN 9 (6-20) mg/dL Creatinine 0.6 (0.4-1.0) mg/dL Estimated GFR (MDRD) 114 (>89) Glucose 96 (70-100) mg/dL Calcium 8.2 L (8.5-10.3) mg/dL Urine Color RED/BLOODY Urine Clarity BLOODY (CLEAR) Urine pH 7.0 (5.0-7.5) PH Ur Specific [place] 1.020 (1.002-1.030) Urine Protein >=300 H (NEGATIVE) mg/dL Urine Glucose (UA) NEGATIVE (NEGATIVE) mg/dL Urine Ketones 15 H (NEGATIVE) mg/dL Urine Occult Blood LARGE H (NEGATIVE) Urine Nitrite NEGATIVE (NEGATIVE) Urine Bilirubin SMALL H (NEGATIVE) Urine Urobilinogen 0.2 (NORMAL) (NORMAL) E.U./dL Ur Leukocyte Esterase NEGATIVE (NEGATIVE) Urine RBC TNTC H (0-5) /HPF Urine WBC >25 H (0-5) /HPF Ur Squamous Epith Cells NONE SEEN (<= Few) Urine Bacteria None Seen (None Seen) /HPF Urine Culture Comments INDICATED - Current Medications Current Medications: Current Medications Generic Name Dose Route Start Last Admin Trade Name Freq PRN Reason Stop Dose Admin Hydromorphone HCl 2 mg 06/06/17 22:13 06/09/17 08:50 Dilaudid Inj Syringe IVP 2 mg Q4H PRN Administration PAIN Acetaminophen 100 mls @ 400 mls/hr 06/07/17 02:05 06/08/17 12:30 Ofirmev IV Infused Q6HR PRN Infusion PAIN Lactated Ringer's 1,000 mls @ 166 mls/hr 06/07/17 08:00 06/09/17 11:13 Lr IV 0 mls/hr .Q6H2M KERA Infusion Levetiracetam 250 mg 06/07/17 21:00 06/08/17 20:46 Keppra PO 250 mg BID KERA Administration Lorazepam 0.5 mg 06/08/17 10:37 06/09/17 08:49 Ativan SL 0.5 mg Q6H PRN Administration Anxiety Ondansetron HCl 4 mg 06/07/17 13:39 06/09/17 08:22 Zofran Inj IVP 4 mg Q4HR PRN Administration Nausea / Vomiting Prochlorperazine Maleate 25 mg 06/06/17 22:06 06/07/17 02:37 Compazine Supp NV 25 mg BID PRN Administration Nausea / Vomiting Exam - Exam Vital Signs: Vital Signs (72 hours) 06/06/17 06/06/17 06/06/17 12:27 15:18 19:00 Temperature 98.8 F 97.9 F 98.4 F Heart Rate [ 89 Brachial] Heart Rate [ 74 76 Monitoring electrodes] Respiratory 16 16 18 Rate Blood Pressure [Left Brachial artery] Blood Pressure 116/57 L 120/58 L 144/85 H [Right Brachial artery] O2 Saturation 99 100 99 06/07/17 06/07/17 06/07/17 01:14 05:00 07:46 Temperature 97.5 F L 98.1 F 98.6 F Heart Rate [ 80 87 73 Brachial] Heart Rate [ Monitoring electrodes] Respiratory 18 18 20 Rate Blood Pressure [Left Brachial artery] Blood Pressure 143/81 H 155/94 H 126/66 [Right Brachial artery] O2 Saturation 98 99 99 06/07/17 06/07/17 06/07/17 12:09 15:33 19:14 Temperature 97.7 F 97.3 F L 99.0 F Heart Rate [ 84 83 Brachial] Heart Rate [ 80 Monitoring electrodes] Respiratory 16 18 16 Rate Blood Pressure [Left Brachial artery] Blood Pressure 143/73 H 118/63 149/76 H [Right Brachial artery] O2 Saturation 98 97 99 06/07/17 06/08/17 06/08/17 23:50 08:24 12:09 Temperature 97.5 F L 97.9 F 98.4 F Heart Rate [ 71 78 Brachial] Heart Rate [ 65 Monitoring electrodes] Respiratory 16 17 16 Rate Blood Pressure [Left Brachial artery] Blood Pressure 139/71 H 139/73 H 137/81 H [Right Brachial artery] O2 Saturation 98 99 98 06/08/17 06/08/17 06/08/17 15:19 19:00 23:53 Temperature 97.7 F 98.4 F 98.1 F Heart Rate [ 65 Brachial] Heart Rate [ 68 90 Monitoring electrodes] Respiratory 18 17 16 Rate Blood Pressure 119/72 125/70 [Left Brachial artery] Blood Pressure 124/68 [Right Brachial artery] O2 Saturation 99 98 100 06/09/17 06/09/17 06/09/17 00:12 05:35 08:59 Temperature 98.1 F 97.9 F 97.5 F L Heart Rate [ 62 63 91 Brachial] Heart Rate [ Monitoring electrodes] Respiratory 16 16 16 Rate Blood Pressure 123/70 [Left Brachial artery] Blood Pressure 115/62 113/63 [Right Brachial artery] O2 Saturation 98 99 100 General: Alert, Oriented x3 HEENT: Mucous membr. 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 The size of the bladder defect is small enough to close with Mclaughlin drainage alone.This opinion was confirmed last night when the case was discussed with urology. Given the patient's stormy immediate postoperative course, I hesitate to recommend cystotomy closure. Plan: * We open discussions with urology, Dr. Guerrero concerning patient demand * I Will give the patient time to process the information reviewed this morning. Discussion with nursing and mother encouraged. * Continue Mclaughlin drainage But discontinue nitrofurantoin * Continue supportive care * Internal medicine hospitalist to advise on headaches
[2017-06-09] MEDS: DOCUSATE SODIUM 250 MG CAPSULE PO SCH (12:19)
[2017-06-09] MEDS: levETIRAcetam 250 MG TABLET PO SCH ×2 (12:19→21:38)
--- NOTE | 2017-06-09 12:27 | PROVIDER PROGRESS NOTE ---
Assessment/Plan - Problem List (1) JACKSON (acute kidney injury) Assessment/Plan: Resolved obstructive uropathy; with relief of obstruction caused by a very distended urinary bladder yesterday. Continue iv fluids at low rate, until able to increase po hydration. Continue to avoid nephrotoxic meds. Continue with simeon drainage of bladder. (2) Bladder distention Assessment/Plan: Relieved with Simeon drainage. Continue plan. (3) Bladder leak Assessment/Plan: I was present at a long discussion at bedside between Dr Uribe, the patient, her and her RN, Josette. The options for management of the bladder tear were discussed including risks and benefits of conservative approach using Simeon drainage and minimal activity, rechecking the status of the tear and her c /o constipation with diagnostic imaging or proceeding to laparoscopic surgery for repair. The decision was to re-evaluate the tear and constipation with imaging tomorrow. 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 I will order imaging for tomorrow: CT of abd and pelvis w/ oral contrast and with iv contrast administered through the simeon in retrograde fashion, and compare this to yesterday's CT. (4) Headaches due to old head trauma Assessment/Plan: Her meds are now ordered on schedule, not prn: muscle relaxants and pain meds as taken at home. (5) Constipation Assessment/Plan: Last abdominal imaging did show stool present. Pt has had trivial response to soap suds enema, another enema and 2 oral laxatives, per RN protocol. There is no excessive abdominal pain or tenderness. The patient requests, and I will add add, prune juice tid prn. Will evaluate constipation with imaging of abdomen tomorrow. - Current Meds Current Meds: Current Medications Generic Name Dose Route Start Last Admin Trade Name Freq PRN Reason Stop Dose Admin Docusate Sodium 250 - 500 mg 06/09/17 12:00 06/09/17 12:19 Colace 250mg Capsule PO 500 mg DAILY KERA Administration Hydromorphone HCl 2 mg 06/06/17 22:13 06/09/17 08:50 Dilaudid Inj Syringe IVP 2 mg Q4H PRN Administration PAIN Acetaminophen 100 mls @ 400 mls/hr 06/07/17 02:05 06/08/17 12:30 Ofirmev IV Infused Q6HR PRN Infusion PAIN Lactated Ringer's 1,000 mls @ 166 mls/hr 06/07/17 08:00 06/09/17 12:21 Lr IV 166 mls/hr .Q6H2M KERA Infusion Levetiracetam 250 mg 06/07/17 21:00 06/09/17 12:19 Keppra PO 250 mg BID KERA Administration Lorazepam 0.5 mg 06/08/17 10:37 06/09/17 08:49 Ativan SL 0.5 mg Q6H PRN Administration Anxiety Ondansetron HCl 4 mg 06/07/17 13:39 06/09/17 08:22 Zofran Inj IVP 4 mg Q4HR PRN Administration Nausea / Vomiting Prochlorperazine Maleate 25 mg 06/06/17 22:06 06/07/17 02:37 Compazine Supp [place] 25 mg BID PRN Administration Nausea / Vomiting - Lab Result Fish Bone Diagrams: 06/10/17 07:24 06/10/17 05:38 - Additional Planning My Orders: My Active Orders 06/09/17 16:00 Methocarbamol [Robaxin] 500 mg PO 0800,1600,2200 oxyCODONE/ACET 5/325 [Percocet 5 mg/325 mg] 1 tab PO 0800,1600,2200 06/10/17 05:00 BMP - BASIC METABOLIC PANEL [CHEM] DAILYLAB CBC - COMP BLD CT W/AUTO DIFF [HEME] DAILYLAB Subjective - Subjective Patient Reports: Feeling Better, Resting Comfortably, Other (Still has abdominal discomfort, improved since yesterday. No more nausea. Worried about sealing of bladder tear without surgery.) Nursing Reports: Other (Able to take solid food, but only bites. Had a small liquid BM today.) Objective Vital Signs: Vital Signs - 24 hr 06/08/17 06/08/17 06/08/17 15:19 19:00 23:53 Temperature 36.5 C 36.9 C 36.7 C Heart Rate [ 65 Brachial] Heart Rate [ 68 90 Monitoring electrodes] Respiratory 18 17 16 Rate Blood Pressure 119/72 125/70 [Left Brachial artery] Blood Pressure 124/68 [Right Brachial artery] O2 Saturation 99 98 100 06/09/17 06/09/17 06/09/17 00:12 05:35 08:59 Temperature 36.7 C 36.6 C 36.4 C L Heart Rate [ 62 63 91 Brachial] Heart Rate [ Monitoring electrodes] Respiratory 16 16 16 Rate Blood Pressure 123/70 [Left Brachial artery] Blood Pressure 115/62 113/63 [Right Brachial artery] O2 Saturation 98 99 100 Oxygen O2 Source Room air I&O (Last 24 Hrs): Intake and Output Totals x24h 06/07/17 06/08/17 06/09/17 23:59 23:59 23:59 Intake Total 2450 3460.000 2916.867 Output Total 700 4775 500 Balance 1750 -7461.489 9444.867 General: Alert, Oriented x3 HEENT: Mucous membr. moist/pink Neck: Supple Cardiovascular: Regular rate, No murmurs Respiratory: No respiratory distress Abdomen: Soft, Other (Tender to light palpation in all quadrants. Bowel sounds + ) Extremities: No edema - Results Results: Laboratory Results WBC 11.6 x10^3/uL (4.8-10.8) H 06/08/17 06:42 RBC 3.63 10^6/uL (4.20-5.40) L 06/08/17 06:42 Hgb 9.4 g/dL (12.0-16.0) L 06/08/17 06:42 Hct 29.2 % (37.0-47.0) L 06/08/17 06:42 MCV 80.3 fL (81.0-99.0) L 06/08/17 06:42 MCH 25.9 pg (27.0-31.0) L 06/08/17 06:42 MCHC 32.2 g/dL (32.0-36.0) 06/08/17 06:42 RDW 15.0 % (12.0-15.0) 06/08/17 06:42 Plt Count 380 10^3/uL (130-450) 06/08/17 06:42 MPV 7.8 fL (7.9-10.8) L 06/08/17 06:42 Neut # 8.6 10^3/uL (1.5-6.6) H 06/08/17 06:42 Lymph # 2.0 10^3/uL (1.5-3.5) 06/08/17 06:42 Waldo # 0.9 10^3/uL (0.0-1.0) 06/08/17 06:42 Eos # 0.1 10^3/uL (0.0-0.7) 06/08/17 06:42 Baso # 0.1 10^3/uL (0.0-0.1) 06/08/17 06:42 Absolute Nucleated RBC 0.00 x10^3/uL 06/08/17 06:42 Total Counted 100 06/07/17 05:47 Band Neuts % (Manual) 1 % (0-10) 06/07/17 05:47 Nucleated RBC % 0.0 /100WBC 06/08/17 06:42 Neutrophils # (Manual) 13.3 10^3/uL (1.5-6.6) H 06/07/17 05:47 Lymphocytes # (Manual) 1.2 10^3/uL (1.5-3.5) L 06/07/17 05:47 Monocytes # (Manual) 0.4 10^3/uL (0.0-1.0) 06/07/17 05:47 Differential Comment MANUAL DIFFERENTIAL 06/07/17 05:47 Platelet Estimate NORMAL (130-450,000) (NORMAL) 06/07/17 05:47 RBC Morph Micro Appear NORMAL APPEARANCE (NORMAL) 06/07/17 05:47 Sodium 140 mmol/L (135-145) 06/09/17 05:45 Potassium 3.7 mmol/L (3.5-5.0) 06/09/17 05:45 Chloride 105 mmol/L (101-111) 06/09/17 05:45 Carbon Dioxide 28 mmol/L (21-32) 06/09/17 05:45 Anion Gap 7.0 (6-13) 06/09/17 05:45 BUN 9 mg/dL (6-20) 06/09/17 05:45 Creatinine 0.6 mg/dL (0.4-1.0) 06/09/17 05:45 Estimated GFR (MDRD) 114 (>89) 06/09/17 05:45 Glucose 96 mg/dL (70-100) 06/09/17 05:45 Calcium 8.2 mg/dL (8.5-10.3) L 06/09/17 05:45 Total Bilirubin 0.4 mg/dL (0.2-1.0) 06/08/17 06:42 AST 25 IU/L (10-42) 06/08/17 06:42 ALT 25 IU/L (10-60) 06/08/17 06:42 Alkaline Phosphatase 45 IU/L (42-121) 06/08/17 06:42 Total Protein 6.2 g/dL (6.7-8.2) L 06/08/17 06:42 Albumin 3.2 g/dL (3.2-5.5) 06/08/17 06:42 Globulin 3.0 g/dL (2.1-4.2) 06/08/17 06:42 Albumin/Globulin Ratio 1.1 (1.0-2.2) 06/08/17 06:42 Urine Color RED/BLOODY 06/08/17 13:15 Urine Clarity BLOODY (CLEAR) 06/08/17 13:15 Urine pH 7.0 PH (5.0-7.5) 06/08/17 13:15 Ur Specific [place] 1.020 (1.002-1.030) 06/08/17 13:15 Urine Protein >=300 mg/dL (NEGATIVE) H 06/08/17 13:15 Urine Glucose (UA) NEGATIVE mg/dL (NEGATIVE) 06/08/17 13:15 Urine Ketones 15 mg/dL (NEGATIVE) H 06/08/17 13:15 Urine Occult Blood LARGE (NEGATIVE) H 06/08/17 13:15 Urine Nitrite NEGATIVE (NEGATIVE) 06/08/17 13:15 Urine Bilirubin SMALL (NEGATIVE) H 06/08/17 13:15 Urine Urobilinogen 0.2 (NORMAL) E.U./dL (NORMAL) 06/08/17 13:15 Ur Leukocyte Esterase NEGATIVE (NEGATIVE) 06/08/17 13:15 Urine RBC TNTC /HPF (0-5) H 06/08/17 13:15 Urine WBC >25 /HPF (0-5) H 06/08/17 13:15 Ur Squamous Epith Cells NONE SEEN (<= Few) 06/08/17 13:15 Urine Bacteria None Seen /HPF (None Seen) 06/08/17 13:15 Urine Culture Comments INDICATED 06/08/17 13:15 Urine HCG, Qual NEGATIVE 11/22/17 07:41 - Procedures Procedures: Procedures BILAT TUBAL DIVISION NEC (03/08/15) EXCISION OF STOMACH, ENDO, DIAGN (09/17/16) LOW CERVICAL (03/08/15) RESECTION OF GALLBLADDER, PERCUTANEOUS ENDOSCOPIC APPROACH (06/12/16)
[2017-06-09] MEDS: oxyCOD/ACETAMIN 5 MG/325 MG TABLET PO SCH ×2 (17:07→21:38)
[2017-06-09] MEDS: METHOCARBAMOL 500 MG TABLET PO SCH ×2 (17:08→21:37)
--- NOTE | 2017-06-09 18:53 | PROVIDER PROGRESS NOTE ---
Subjective - Prog Note Date Prog Note Date: 06/09/17 Prog Note Time: 18:50 - Subjective Pt reports feeling: No change Subjective: I am the on-call physician asked by Dr. Torres to provide a second opinion of the patient. Khalida is a 36 yo S/p ALLEGRA/BS 06/04/2017 for leiomyoma. The patient had a post-operative complication of a cystotomy diagnosed 2016. 06/08/[address] of the abdomen and pelvis reveals a 3 mm laceration in the dome of the bladder. Ureters appear normal. I had a long discussion with the patient, the patient's Elkin, patient' s RN and Dr. Frederick colin. Reviewed that the patient underwent a ALLEGRA/BS for a fibroid. An unexpected, but known complication of a cystotomy was diagnosed by a retrograde CT. This complication was likely from her tissue having had multiple surgeries and the scarring making the tissue planes difficult to identify. The operative note mentions that the bladder was adhesed to the anterior uterus. Khalida's options are: 1. Conservative management with a simeon catheter in-situ to decompress the bladder and let the cystotomy spontaneously heal on its own. The simeon catheter would need to be in-situ for about 2 weeks. 2. Surgical repair of the bladder and then also 2 weeks of the simeon catheter in-situ. She would have to have a simeon catheter in-situ regardless of the plan of action. There would be significant inherent risks of surgery. This would include the risk of anesthesia (with which she has had a difficult time recovering from), hemorrhage, infection and damage to the surrounding organs. With respect to damage to surrounding organs this may include, but is not limited to an inadvertent laceration cauterization or ligation of the bladder, ureters or intestines. She also understands that the surgery may increase her stay here in the hospital. Khalida later verbalized her concerns. Her understanding was the hysterectomy was for help in correcting her broken pelvis. She was referred to [facility] by her physical therapist. Khalida recalls that she went on a [employer] cruise where she unfortunately fell down 16 steps and she had multiple injuries including a skull fracture, closed head concussion, and pelvic fractures. She was emergently transported to the [place] for medical workup since she did not trust the medical system in the [employer]. Here in [place] state the patient was seen where she was essentially ignored and told to take ASA. Khalida has also verbalized to me that after her second delivery she had a postoperative hematoma. Despite reassurances of the medical staff that the hematoma would resolve on its own, Khalida had to undergo surgery. Khalida feels that she would be one of the few people that would have any rare complication. Because Khalida has endured so many surgeries and medical issues she feels an additional surgery to repair her bladder would not be that significant. She would be willing to undergo any other procedures to be reassured that she would not have to have additional surgeries. Khalida was very firm that she has to be home for the holidays and would not want to be hospitalized for repair of the bladder during Ana if it could have been done now. Khalida does not feel that she can recover with the idea that she still has a hole in her bladder. She verbalizes her understanding that though she has a large family to take care of, she must rest regardless from surgery. Khalida is essentially lay on the couch and not do much for the next 6 weeks. What Khalida wants to do is to recover from this surgery so she can continue with her physical therapy to fix her pelvis, spine and neck. After Khalida and Elkin's questions were answered to their satisfaction, Khalida still verbalized her desire to proceed with repair of her bladder. She stated that if she did not get her repair, she would find a surgeon who would do the repair and not return to [facility]. Will proceed to a repeat retrograde CT of the abdomen and pelvis in the AM. I would not anticipate the bladder healing by tomorrow. Will plan to have the patient to be NPO and proceed to a laparoscopic repair of the cystotomy with cystoscopy. Will potentially need to open if the case is too technically difficult. Will recheck creatinine and BUN for tomorrow. Will consent the patient tonight. Appreciate Dr. Mack's assistance. Also work on patient's constipation. Has not passed significant amount of stool since admission. Objective - Vital Signs/Intake & Output Vital Signs: Vital Signs x48h Temp Pulse Resp BP Pulse Ox 06/09/17 15:45 97.4 F L 81 16 134/85 H 99 06/09/17 14:53 98.0 F 85 18 127/67 99 Intake & Output: Intake & Output 06/06/17 06/07/17 06/08/17 06/09/17 23:59 23:59 23:59 23:59 Intake Total 2220 2450 3460.000 3709.200 Output Total 2900 700 4775 2500 Balance -680 1750 -5953.730 6988.200 - Lab Results Fish Bones: 06/08/17 06:42 06/09/17 05:45 Other Labs: Lab Results x24hrs 06/09/17 Range/Units 05:45 Sodium 140 (135-145) mmol/L Potassium 3.7 (3.5-5.0) mmol/L Chloride 105 (101-111) mmol/L Carbon Dioxide 28 (21-32) mmol/L Anion Gap 7.0 (6-13) BUN 9 (6-20) mg/dL Creatinine 0.6 (0.4-1.0) mg/dL Estimated GFR (MDRD) 114 (>89) Glucose 96 (70-100) mg/dL Calcium 8.2 L (8.5-10.3) mg/dL Assessment/Plan - Problem List (1) S/P hysterectomy Impression: 36 yo S/p 06/04/2017 ALLEGRA/BS for infarcting leiomyoma POD #5 (2) Laceration of bladder as postoperative complication Impression: 3 mm cystotomy at the dome of the bladder Will repeat retrograde CT of the abdomen and pelvis with contrast in the AM Plan for surgical repair of the laceration via laparoscopy and possible exploratory laparotomy. Will do cystoscopy after bladder repair. Patient to be NPO after midnight. Repeat BUN/creatinine as well as AM CBC and T&S Bladder rest after surgery for at least 2 weeks.
[2017-06-09] MEDS: ACETAMINOPHEN 1,000 MG/100 ML 100 ML IV PRN (19:10)
[2017-06-10] MEDS ORDERED: MAGNESIUM CITRATE 296 ML BOTTLE PO PRN (01:46)
[2017-06-10] MEDS: LACTATED RINGERS 1,000 ML IV SCH ×4 (01:47→22:07)
[2017-06-10 05:45] LABS: BASOPHILS % (AUTO) 0.7 %; EOSINOPHILS # (AUTO) 0.4 10^3/uL (0.0-0.7); EOSINOPHILS % (AUTO) 6.8 %; HCT - HEMATOCRIT 29.3 % (37.0-47.0); HGB - HEMOGLOBIN 9.6 g/dL (12.0-16.0); LYMPHOCYTES # (AUTO) 1.7 10^3/uL (1.5-3.5); LYMPHOCYTES % (AUTO) 29.2 %; MEAN CORPUSCULAR HEMOGLOBIN 26.2 pg (27.0-31.0); MEAN CORPUSCULAR HGB CONC 32.8 g/dL (32.0-36.0); MEAN PLATELET VOLUME 7.8 fL (7.9-10.8); MONOCYTES # (AUTO) 0.4 10^3/uL (0.0-1.0); MONOCYTES % (AUTO) 7.5 %; NEUTROPHILS # (AUTO) 3.3 10^3/uL (1.5-6.6); NEUTROPHILS % (AUTO) 55.8 %; RED BLOOD COUNT 3.66 10^6/uL (4.20-5.40); RED CELL DISTRIBUTION WIDTH 14.9 % (12.0-15.0); UNCORRECTED WHITE BLOOD COUNT 5.9 x10^3/uL; WHITE BLOOD COUNT 5.9 x10^3/uL (4.8-10.8)
[2017-06-10] MEDS: HYDROmorphone 0.5 MG/0.5 ML SYRINGE IVP PRN ×5 (05:57→22:21)
[2017-06-10 06:08] LABS: BUN - BLOOD UREA NITROGEN < 5 mg/dL (6-20); CALCIUM 8.8 mg/dL (8.5-10.3); CARBON DIOXIDE - CO2 29 mmol/L (21-32); CHLORIDE 103 mmol/L (101-111); CREATININE 0.6 mg/dL (0.4-1.0); GFR - MDRD 114 (>89); GLUCOSE 97 mg/dL (70-100); POTASSIUM 3.8 mmol/L (3.5-5.0); SODIUM 142 mmol/L (135-145)
[2017-06-10] MEDS: ONDANSETRON 4 MG/2 ML VIAL IVP PRN ×3 (06:08→18:18)
[2017-06-10 07:50] LABS: BASOPHILS % (AUTO) 0.3 %; EOSINOPHILS # (AUTO) 0.4 10^3/uL (0.0-0.7); EOSINOPHILS % (AUTO) 6.5 %; HCT - HEMATOCRIT 28.6 % (37.0-47.0); HGB - HEMOGLOBIN 9.6 g/dL (12.0-16.0); LYMPHOCYTES # (AUTO) 1.2 10^3/uL (1.5-3.5); LYMPHOCYTES % (AUTO) 17.7 %; MEAN CORPUSCULAR HEMOGLOBIN 26.3 pg (27.0-31.0); MEAN CORPUSCULAR HGB CONC 33.6 g/dL (32.0-36.0); MEAN CORPUSCULAR VOLUME 78.3 fL (81.0-99.0); MONOCYTES # (AUTO) 0.5 10^3/uL (0.0-1.0); MONOCYTES % (AUTO) 7.8 %; NEUTROPHILS # (AUTO) 4.6 10^3/uL (1.5-6.6); NEUTROPHILS % (AUTO) 67.7 %; NUCLEATED RED BLOOD CELLS AUTO 0.1 /100WBC; RED BLOOD COUNT 3.65 10^6/uL (4.20-5.40); RED CELL DISTRIBUTION WIDTH 15.5 % (12.0-15.0); UNCORRECTED WHITE BLOOD COUNT 6.8 x10^3/uL; WHITE BLOOD COUNT 6.8 x10^3/uL (4.8-10.8)
--- NOTE | 2017-06-10 07:58 | PROVIDER PROGRESS NOTE ---
Subjective - Prog Note Date Prog Note Date: 06/10/17 Prog Note Time: 07:58 - Subjective Subjective: We thought that this patient was in a go to the operating room today. However in restudying her, retrograde imaging shows that the hole is getting smaller and there is less leaking. Current Medications - Current Medications Current Medications: Active Medications Diphenhydramine HCl (Benadryl Inj) 12.5 - 25 mg IVP Q6HR PRN PRN Reason: ITCHING Docusate Sodium (Colace 250mg Capsule) 250 - 500 mg PO DAILY [facility] Last Admin: 06/09/17 12:19 Dose: 500 mg Hydromorphone HCl (Dilaudid Inj Syringe) 2 mg IVP Q4H PRN PRN Reason: PAIN Last Admin: 06/10/17 05:57 Dose: 2 mg Acetaminophen (Ofirmev) 100 mls @ 400 mls/hr IV Q6HR PRN PRN Reason: PAIN Last Infusion: 06/09/17 20:25 Dose: Infused Lactated Ringer's (Lr) 1,000 mls @ 166 mls/hr IV .Q6H2M [facility] Last Admin: 06/10/17 01:47 Dose: 166 mls/hr Levofloxacin (Levaquin 500 Mg/100 Ml) 500 mg in 100 mls @ 100 mls/hr IV Q24H [facility] Levetiracetam (Keppra) 250 mg PO BID [facility] Last Admin: 06/09/17 21:38 Dose: 250 mg Lorazepam (Ativan) 0.5 mg SL Q6H PRN PRN Reason: Anxiety Last Admin: 06/09/17 08:49 Dose: 0.5 mg Methocarbamol (Robaxin) 500 mg PO 0800,1600,2200 [facility] Last Admin: 06/09/17 21:37 Dose: 500 mg Ondansetron HCl (Zofran Inj) 4 mg IVP Q4HR PRN PRN Reason: Nausea / Vomiting Last Admin: 06/10/17 06:08 Dose: 4 mg Oxycodone/Acetaminophen (Percocet 5 Mg/325 Mg) 1 tab PO 0800,1600,2200 [facility] Last Admin: 06/09/17 21:38 Dose: 1 tab Polyethylene Glycol (Miralax) 17 gm PO DAILY [facility] Prochlorperazine Maleate (Compazine Supp) 25 mg IN BID PRN PRN Reason: Nausea / Vomiting Last Admin: 06/07/17 02:37 Dose: 25 mg buPROPion [Wellbutrin Sr] 150 mg PO BID 08/27/16 Acetaminophen [Tylenol Extra Strength] 500 mg PO TID PRN 06/02/17 Amitriptyline HCl 10 mg PO DAILY PM 06/02/17 LORazepam [Ativan] 1 tab PO DAILY PRN 06/02/17 Methocarbamol 500 mg PO Q8HR PRN 06/02/17 Oxycodone HCl/Acetaminophen [Oxycodone-Acetaminophen 5-325] 1 each PO Q8HR 06/02 levETIRAcetam [Keppra] 250 mg PO BID 06/02/17 Objective - Vital Signs/Intake & Output Reviewed Vital Signs: Yes Vital Signs: Vital Signs x48h Temp Pulse Resp BP Pulse Ox 06/10/17 06:23 36.8 C 70 16 129/67 96 06/10/17 00:59 36.6 C 70 16 110/54 L 99 Intake & Output: Intake & Output 06/07/17 06/08/17 06/09/17 06/10/17 23:59 23:59 23:59 23:59 Intake Total 2450 3460.000 4902.633 1000 Output Total 700 4775 4300 2300 Balance 1750 -1315.000 602.633 -1300 - Objective General Appearance: positive: Alert, Mild distress (From abdominal pain, and more than nausea from the pain meds) Eyes Bilateral: positive: PERRL ENT: positive: Pharynx nml Neck: positive: No JVD. negative: Stiff neck, Carotid bruit Respiratory: positive: Chest non-tender. negative: Wheezes, Rales, Rhonchi Cardiovascular: positive: Regular rate & rhythm. negative: Gallop/S4, Friction rub Abdomen: positive: Nml bowel sounds, Tenderness, Other (mild distension). negative: Guarding, Rebound Skin: positive: Warm, Dry Extremities: positive: No pedal edema Neurologic/Psychiatric: positive: Oriented x3, CN's nml (2-12), Motor nml - Lab Results Fish Bones: 06/10/17 07:24 06/10/17 05:38 Other Labs: Lab Results x24hrs 1106/10/17 06/10/17 Range/Units 07:24 05:38 05:38 WBC 6.8 5.9 (4.8-10.8) x10^3/uL RBC 3.65 L 3.66 L (4.20-5.40) 10^6/uL Hgb 9.6 L 9.6 L (12.0-16.0) g/dL Hct 28.6 L 29.3 L (37.0-47.0) % MCV 78.3 L 80.0 L (81.0-99.0) fL MCH 26.3 L 26.2 L (27.0-31.0) pg MCHC 33.6 32.8 (32.0-36.0) g/dL RDW 15.5 H 14.9 (12.0-15.0) % Plt Count 383 385 (130-450) 10^3/uL MPV 8.0 7.8 L (7.9-10.8) fL Neut # 4.6 3.3 (1.5-6.6) 10^3/uL Lymph # 1.2 L 1.7 (1.5-3.5) 10^3/uL [place] # 0.5 0.4 (0.0-1.0) 10^3/uL Eos # 0.4 0.4 (0.0-0.7) 10^3/uL Baso # 0.0 0.0 (0.0-0.1) 10^3/uL Absolute Nucleated RBC 0.00 0.00 x10^3/uL Nucleated RBC % 0.1 0.0 /100WBC Sodium 142 (135-145) mmol/L Potassium 3.8 (3.5-5.0) mmol/L Chloride 103 (101-111) mmol/L Carbon Dioxide 29 (21-32) mmol/L Anion Gap 10.0 (6-13) BUN < 5 L (6-20) mg/dL Creatinine 0.6 (0.4-1.0) mg/dL Estimated GFR (MDRD) 114 (>89) Glucose 97 (70-100) mg/dL Calcium 8.8 (8.5-10.3) mg/dL Assessment/Plan - Problem List (1) Laceration of bladder as postoperative complication Impression: with acute kidney insufficiency that resolved with simeon. Puncture is healing. Plan is dc in am.
[2017-06-10] MEDS ORDERED: IOPAMIDOL-300 100 ML VIAL ONE (08:28)
[2017-06-10] MEDS ORDERED: IOPAMIDOL-300 50 ML VIAL ONE (08:28)
[2017-06-10] MEDS ORDERED: DOCUSATE SODIUM 250 MG CAPSULE PO SCH (09:00)
--- NOTE | 2017-06-10 09:04 | PROVIDER PROGRESS NOTE ---
Subjective - Prog Note Date Prog Note Date: 06/10/17 Prog Note Time: 09:02 - Subjective Pt reports feeling: No change Subjective: Briefly spoke to the patient today. Sitting happily in bed. Eating ice chips. Female friend sitting in the visitor's bed. Simeon catheter in-situ. States she has had a BM this AM. Has ambulated and sat in her chair. Still intent on having surgery this AM. Blood has been drawn but no word yet on when her retrograde CT to be done. No significant nausea. Objective - Vital Signs/Intake & Output Reviewed Vital Signs: Yes Vital Signs: Vital Signs x48h Temp Pulse Resp BP Pulse Ox 06/10/17 08:23 97.6 F L 67 18 125/59 L 100 06/10/17 06:23 98.3 F 70 16 129/67 96 Intake & Output: Intake & Output 06/07/17 06/08/17 06/09/17 06/10/17 23:59 23:59 23:59 23:59 Intake Total 2450 3460.000 4902.633 2000 Output Total 700 4775 4300 2300 Balance 1750 -1315.000 602.633 -300 - Objective General Appearance: positive: No acute distress Eyes Bilateral: positive: Normal inspection Abdomen: positive: Other (Prevena wound vac intact and working well) - Lab Results Fish Bones: 06/10/17 07:24 06/10/17 05:38 Other Labs: Lab Results x24hrs 06/10/17 06/10/17 06/10/17 Range/Units 07:24 05:38 05:38 WBC 6.8 5.9 (4.8-10.8) x10^3/uL RBC 3.65 L 3.66 L (4.20-5.40) 10^6/uL Hgb 9.6 L 9.6 L (12.0-16.0) g/dL Hct 28.6 L 29.3 L (37.0-47.0) % MCV 78.3 L 80.0 L (81.0-99.0) fL MCH 26.3 L 26.2 L (27.0-31.0) pg MCHC 33.6 32.8 (32.0-36.0) g/dL RDW 15.5 H 14.9 (12.0-15.0) % Plt Count 383 385 (130-450) 10^3/uL MPV 8.0 7.8 L (7.9-10.8) fL Neut # 4.6 3.3 (1.5-6.6) 10^3/uL Lymph # 1.2 L 1.7 (1.5-3.5) 10^3/uL [place] # 0.5 0.4 (0.0-1.0) 10^3/uL Eos # 0.4 0.4 (0.0-0.7) 10^3/uL Baso # 0.0 0.0 (0.0-0.1) 10^3/uL Absolute Nucleated RBC 0.00 0.00 x10^3/uL Nucleated RBC % 0.1 0.0 /100WBC Sodium 142 (135-145) mmol/L Potassium 3.8 (3.5-5.0) mmol/L Chloride 103 (101-111) mmol/L Carbon Dioxide 29 (21-32) mmol/L Anion Gap 10.0 (6-13) BUN < 5 L (6-20) mg/dL Creatinine 0.6 (0.4-1.0) mg/dL Estimated GFR (MDRD) 114 (>89) Glucose 97 (70-100) mg/dL Calcium 8.8 (8.5-10.3) mg/dL Assessment/Plan - Problem List (1) S/P hysterectomy Impression: 36 yo S/p ALLEGRA/BS 06/04/2017, POD #6 Path: Uterus and cervix 3547 gm, 13.0 x 9.0 x 8.5 cm. Two intramural leiomyomata ranging in size from 0.7 cm up to 7.4 cm. Benign cervix, endometrium , serosa and fallopian tubes. Simple paratubal cysts. (2) Laceration of bladder as postoperative complication Impression: Three mm laceration identified. Creatinine improved after simeon catheter placed. Discussed with the patient last night her options of letting the laceration heal spontaneously with bladder rest vs surgical repair. Stressed to the patient that I would recommend conservative care with bladder rest. The risks of surgery (hemorrhage, infection, or inadvertent laceration, cauterization or ligation of adjacent bladder, ureters and intestines, along with slower recovery, and risk of anesthesia) DO NOT outweigh the benefits. I did confer with Dr. Norman Torres who in turn consulted Dr. Mc Guerrero last PM. They both are in agreement with me that bladder rest with the simeon catheter is in the patient's best interest. Both would not recommend primary closure of the laceration as her first line of care. The patient this AM is still adamant in proceeding with surgery. Will proceed to repeat the retrograde CT of the abdomen and pelvis (which likely will show no change). Anticipate laparoscopy with a two layer closer of the cystotomy and cystoscopy. May have to open if the case is too technically challenging. Stressed to the patient to be NPO.
[2017-06-10] MEDS: levETIRAcetam 250 MG TABLET PO SCH ×2 (09:14→22:07)
[2017-06-10] MEDS: oxyCOD/ACETAMIN 5 MG/325 MG TABLET PO SCH ×3 (09:14→22:07)
[2017-06-10] MEDS: METHOCARBAMOL 500 MG TABLET PO SCH ×3 (09:14→22:07)
[2017-06-10] MEDS: DOCUSATE SODIUM 250 MG CAPSULE PO SCH (09:14)
[2017-06-10] MEDS: POLYETHYLENE GLYCOL 3350 17 GM PACKET PO SCH (09:16)
[2017-06-10] MEDS ORDERED: SODIUM CHLORIDE FLUSH 0.9% 10 ML SYRINGE IVP ONE ×3 (10:12→22:11)
[2017-06-10] MEDS ORDERED: IOPAMIDOL-300 100 ML VIAL IVP ONE (10:34)
--- NOTE | 2017-06-10 10:42 | CT Report ---
CT ABDOMEN AND PELVIS WITHOUT INTRAVENOUS CONTRAST: 06/10/2017 CLINICAL INDICATION: Followup bladder leak. COMPARISON: 06/08/2017 TECHNIQUE: Axial CT images of the abdomen and pelvis were obtained without intravenous contrast. Co ntrast was infused into the urinary bladder via gravity. Images were then obtained with the bladder filled, and following Mclaughlin catheter drainage. In accordance with CT protocol optimization, one or more of the following dose reduction techniques w ere utilized for this exam: automated exposure control, adjustment of mA and/or KV based on patient size, or use of iterative reconstructive technique. FINDINGS: Limited evaluation of the lung bases demonstrates minimal atelectasis. Abdomen: Postoperative free intraperitoneal gas is noted, and subcutaneous gas is present. No bowel dilatation is seen. Previously seen free fluid in the abdomen has resolved. No abdominal adenopath y is appreciated. Postoperative changes of cholecystectomy are noted. Noncontrast evaluation of the solid organs is unremarkable. Pelvis: The previously noted leak in the dome of the urinary bladder is no longer appreciated. No c ontrast extravasation is identified during filling phase or following drainage of the bladder. Trace residual free fluid is seen in the pelvis. Postoperative changes are stable. Osseous structures appear unremarkable. IMPRESSION: RESOLUTION OF PREVIOUSLY NOTED BLADDER LEAK. NO EVIDENCE OF CONTRAST EXTRAVASATION DURI NG FILLING OR FOLLOWING EMPTYING. STABLE POSTOPERATIVE CHANGES. RESULTS DISCUSSED WITH DR. RAINES ON 06/10/2017 AT 10:15 A.M. JOB #: [id number] EXT JOB #:[id number]
[2017-06-10] MEDS: LORazepam 0.5 MG TABLET SL PRN (10:46)
[2017-06-10] MEDS ORDERED: levoFLOXacin 500 MG/100 ML 500 MG/100 ML BAG IV SCH (12:00)
--- NOTE | 2017-06-10 15:24 | PROVIDER PROGRESS NOTE ---
Subjective - Prog Note Date Prog Note Date: 06/10/17 Prog Note Time: 15:22 - Subjective Pt reports feeling: No change Subjective: Patient sitting in bed. Still having tolerable nausea and pelvic pain. Mom at bedside. Objective - Vital Signs/Intake & Output Vital Signs: Vital Signs x48h Temp Pulse Resp BP BP Pulse Ox 06/10/17 12:12 97.9 F 67 18 103/62 99 06/10/17 08:23 97.6 F L 67 18 125/59 L 100 Intake & Output: Intake & Output 06/07/17 06/08/17 06/09/17 06/10/17 23:59 23:59 23:59 23:59 Intake Total 2450 3460.000 4902.633 2685.367 Output Total 700 4775 4300 4625 Balance 1750 -1315.000 602.633 -1939.633 - Objective General Appearance: positive: Mild distress (Due to pain) Eyes Bilateral: positive: Normal inspection Abdomen: positive: Other (Appropriate tenderness. Prevena wound vac removed. Incision clean dry and intact. Healing nicely. No ecchymosis.) Skin: positive: Color nml Extremities: positive: Non-tender, No pedal edema Neurologic/Psychiatric: positive: Oriented x3 - Lab Results Fish Bones: 06/10/17 07:24 06/10/17 05:38 Other Labs: Lab Results x24hrs 06/10/17 06/10/17 06/10/17 Range/Units 07:24 07:24 05:38 WBC 6.8 (4.8-10.8) x10^3/uL RBC 3.65 L (4.20-5.40) 10^6/uL Hgb 9.6 L (12.0-16.0) g/dL Hct 28.6 L (37.0-47.0) % MCV 78.3 L (81.0-99.0) fL MCH 26.3 L (27.0-31.0) pg MCHC 33.6 (32.0-36.0) g/dL RDW 15.5 H (12.0-15.0) % Plt Count 383 (130-450) 10^3/uL MPV 8.0 (7.9-10.8) fL Neut # 4.6 (1.5-6.6) 10^3/uL Lymph # 1.2 L (1.5-3.5) 10^3/uL [place] # 0.5 (0.0-1.0) 10^3/uL Eos # 0.4 (0.0-0.7) 10^3/uL Baso # 0.0 (0.0-0.1) 10^3/uL Absolute Nucleated RBC 0.00 x10^3/uL Nucleated RBC % 0.1 /100WBC Sodium 142 (135-145) mmol/L Potassium 3.8 (3.5-5.0) mmol/L Chloride 103 (101-111) mmol/L Carbon Dioxide 29 (21-32) mmol/L Anion Gap 10.0 (6-13) BUN < 5 L (6-20) mg/dL Creatinine 0.6 (0.4-1.0) mg/dL Estimated GFR (MDRD) 114 (>89) Glucose 97 (70-100) mg/dL Calcium 8.8 (8.5-10.3) mg/dL Blood Type O POSITIVE Antibody Screen NEGATIVE 06/10/17 Range/Units 05:38 WBC 5.9 (4.8-10.8) x10^3/uL RBC 3.66 L (4.20-5.40) 10^6/uL Hgb 9.6 L (12.0-16.0) g/dL Hct 29.3 L (37.0-47.0) % MCV 80.0 L (81.0-99.0) fL MCH 26.2 L (27.0-31.0) pg MCHC 32.8 (32.0-36.0) g/dL RDW 14.9 (12.0-15.0) % Plt Count 385 (130-450) 10^3/uL MPV 7.8 L (7.9-10.8) fL Neut # 3.3 (1.5-6.6) 10^3/uL Lymph # 1.7 (1.5-3.5) 10^3/uL [place] # 0.4 (0.0-1.0) 10^3/uL Eos # 0.4 (0.0-0.7) 10^3/uL Baso # 0.0 (0.0-0.1) 10^3/uL Absolute Nucleated RBC 0.00 x10^3/uL Nucleated RBC % 0.0 /100WBC Sodium (135-145) mmol/L Potassium (3.5-5.0) mmol/L Chloride (101-111) mmol/L Carbon Dioxide (21-32) mmol/L Anion Gap (6-13) BUN (6-20) mg/dL Creatinine (0.4-1.0) mg/dL Estimated GFR (MDRD) (>89) Glucose (70-100) mg/dL Calcium (8.5-10.3) mg/dL Blood Type Antibody Screen - Diagnostic Imaging Diagnostic Imaging Results: positive: Discussed with radiologist (Retrograde CT pelvis/abdomen shows no spillage into the abdomen) Assessment/Plan - Problem List (1) S/P hysterectomy Impression: 36 yo S/p ALLEGRA/BS 06/04/2017, POD #6 Normal recovery Prevena wound vac removed Abdominal binder Rx for motrin, tylenol, zofran, scopalamine patch, dilaudid, ativan Follow up with me 06/13/2017 at [facility] (2) Laceration of bladder as postoperative complication Impression: Cystotomy closed by today's retrograde CT of abd/pelvis Will continue simeon catheter x 2 weeks Prophylactic antibiotics with cipro 250 mg QD Rx for ativan for anxiety Follow up with myself 06/13/2017 at [facility]
--- NOTE | 2017-06-10 17:03 | PROVIDER PROGRESS NOTE ---
Subjective - Prog Note Date Prog Note Date: 06/10/17 Prog Note Time: 16:55 - Subjective Pt reports feeling: No change (Called by RN. Patient would like to stay an extra day. OK to discharge tomorrow. Will hold in the mean time.) Objective - Vital Signs/Intake & Output Vital Signs: Vital Signs x48h Temp Pulse Resp BP BP Pulse Ox 06/10/17 16:29 98.4 F 75 18 137/74 H 99 06/10/17 12:12 97.9 F 67 18 103/62 99 Intake & Output: Intake & Output 06/07/17 06/08/17 06/09/17 06/10/17 23:59 23:59 23:59 23:59 Intake Total 2450 3460.000 4902.633 3487.700 Output Total 700 4775 4300 4625 Balance 1750 -1315.000 602.633 -1137.300 - Lab Results Fish Bones: 06/10/17 07:24 06/10/17 05:38 Other Labs: Lab Results x24hrs 06/10/17 06/10/17 06/10/17 Range/Units 07:24 07:24 05:38 WBC 6.8 (4.8-10.8) x10^3/uL RBC 3.65 L (4.20-5.40) 10^6/uL Hgb 9.6 L (12.0-16.0) g/dL Hct 28.6 L (37.0-47.0) % MCV 78.3 L (81.0-99.0) fL MCH 26.3 L (27.0-31.0) pg MCHC 33.6 (32.0-36.0) g/dL RDW 15.5 H (12.0-15.0) % Plt Count 383 (130-450) 10^3/uL MPV 8.0 (7.9-10.8) fL Neut # 4.6 (1.5-6.6) 10^3/uL Lymph # 1.2 L (1.5-3.5) 10^3/uL [place] # 0.5 (0.0-1.0) 10^3/uL Eos # 0.4 (0.0-0.7) 10^3/uL Baso # 0.0 (0.0-0.1) 10^3/uL Absolute Nucleated RBC 0.00 x10^3/uL Nucleated RBC % 0.1 /100WBC Sodium 142 (135-145) mmol/L Potassium 3.8 (3.5-5.0) mmol/L Chloride 103 (101-111) mmol/L Carbon Dioxide 29 (21-32) mmol/L Anion Gap 10.0 (6-13) BUN < 5 L (6-20) mg/dL Creatinine 0.6 (0.4-1.0) mg/dL Estimated GFR (MDRD) 114 (>89) Glucose 97 (70-100) mg/dL Calcium 8.8 (8.5-10.3) mg/dL Blood Type O POSITIVE Antibody Screen NEGATIVE 06/10/17 Range/Units 05:38 WBC 5.9 (4.8-10.8) x10^3/uL RBC 3.66 L (4.20-5.40) 10^6/uL Hgb 9.6 L (12.0-16.0) g/dL Hct 29.3 L (37.0-47.0) % MCV 80.0 L (81.0-99.0) fL MCH 26.2 L (27.0-31.0) pg MCHC 32.8 (32.0-36.0) g/dL RDW 14.9 (12.0-15.0) % Plt Count 385 (130-450) 10^3/uL MPV 7.8 L (7.9-10.8) fL Neut # 3.3 (1.5-6.6) 10^3/uL Lymph # 1.7 (1.5-3.5) 10^3/uL [place] # 0.4 (0.0-1.0) 10^3/uL Eos # 0.4 (0.0-0.7) 10^3/uL Baso # 0.0 (0.0-0.1) 10^3/uL Absolute Nucleated RBC 0.00 x10^3/uL Nucleated RBC % 0.0 /100WBC Sodium (135-145) mmol/L Potassium (3.5-5.0) mmol/L Chloride (101-111) mmol/L Carbon Dioxide (21-32) mmol/L Anion Gap (6-13) BUN (6-20) mg/dL Creatinine (0.4-1.0) mg/dL Estimated GFR (MDRD) (>89) Glucose (70-100) mg/dL Calcium (8.5-10.3) mg/dL Blood Type Antibody Screen
[2017-06-11] MEDS: ACETAMINOPHEN 1,000 MG/100 ML 100 ML IV PRN (00:34)
[2017-06-11] MEDS: HYDROmorphone 0.5 MG/0.5 ML SYRINGE IVP PRN ×3 (02:28→11:52)
[2017-06-11] MEDS: LACTATED RINGERS 1,000 ML IV SCH (04:30)
[2017-06-11] MEDS: LORazepam 0.5 MG TABLET SL PRN (06:30)
[2017-06-11] MEDS: ONDANSETRON 4 MG/2 ML VIAL IVP PRN ×2 (07:36→12:01)
[2017-06-11] MEDS: oxyCOD/ACETAMIN 5 MG/325 MG TABLET PO SCH (08:28)
[2017-06-11] MEDS: METHOCARBAMOL 500 MG TABLET PO SCH (08:29)
[2017-06-11] MEDS: DOCUSATE SODIUM 250 MG CAPSULE PO SCH (08:29)
[2017-06-11] MEDS: levETIRAcetam 250 MG TABLET PO SCH (08:29)
[2017-06-11] MEDS: POLYETHYLENE GLYCOL 3350 17 GM PACKET PO SCH (08:31)
--- NOTE | 2017-06-11 09:05 | PROVIDER PROGRESS NOTE ---
Subjective - Prog Note Date Prog Note Date: 06/11/17 Prog Note Time: 09:04 - Subjective Pt reports feeling: Improved (Khalida is sitting in bed, just received her antiemetic. States she was not given her medications routinely, just PRN. Still voices her desire to go home. Mom in visitor's bed; stayed overnight. No fever or chills. Ambulating. Tolerating waffle breakfast today.) Objective - Vital Signs/Intake & Output Reviewed Vital Signs: Yes Vital Signs: Vital Signs x48h Temp Pulse Resp BP BP Pulse Ox 06/11/17 08:12 98.2 F 61 18 130/63 99 06/11/17 05:49 97.9 F 63 18 113/70 99 Intake & Output: Intake & Output 06/08/17 06/09/17 06/10/17 06/11/17 23:59 23:59 23:59 23:59 Intake Total 3460.000 4902.633 4687.700 1240 Output Total 4775 4300 6025 1650 Balance -1315.000 602.633 -1337.300 -410 - Objective General Appearance: positive: Mild distress (Due to pain and nausea) Abdomen: positive: Non-tender (Incision clean, dry and intact. Healing nicely. No erythema, edema nor exudate) Skin: positive: Color nml Neurologic/Psychiatric: positive: Oriented x3 - Lab Results Fish Bones: 06/10/17 07:24 06/10/17 05:38 Other Labs: Lab Results x24hrs 06/10/17 Range/Units 07:24 Blood Type O POSITIVE Antibody Screen NEGATIVE Assessment/Plan - Problem List (1) S/P hysterectomy Impression: 36 yo S/p ALLEGRA/BS 06/04/2017, POD #7 Normal recovery Discharge to home today Follow up with myself 06/13/2017 Meds sent for home care Call for worsening fevers, chills, abdominal pain or vaginal bleeding Patient to have the simeon catheter in-situ for the next two weeks (2) Laceration of bladder as postoperative complication Impression: Spontaneous resolution of bladder laceration as seen on 06/10/[address] Keep simeon catheter in-situ for the next two weeks Follow up with myself 06/13/2017
[2017-06-11] MEDS ORDERED: SODIUM CHLORIDE FLUSH 0.9% 10 ML SYRINGE IVP ONE (10:24)
[2017-06-11 11:53] VITALS: BP 133/73
[2017-06-11] MEDS ORDERED: SODIUM CHLORIDE 0.9% 0 ML ONE (11:54)
--- NOTE | 2017-06-11 16:10 | DISCHARGE SUMMARY ---
DATE OF ADMISSION: 06/04/2017 DATE OF DISCHARGE: 06/11/2017 DIAGNOSES ON ADMISSION 1. A 36-year-old, G4, P4-0-0-4. 2. Leiomyomata. 3. Menometrorrhagia. DIAGNOSES ON DISCHARGE 1. A 36-year-old G4, P4-0-0-4. 2. Status post 06/04/2017 total abdominal hysterectomy and bilateral salpingo- oophorectomy. 3. Spontaneous closure of bladder laceration. CONSULTATIONS: Hospitalist service. STUDIES: Retrograde CTs performed on 06/08 and 06/10/2017. BRIEF HISTORY: This is a patient of [facility] [place] who presented to us initially on 05/13/2017 for irregular bleeding. Workup revealed that the patient had significant uterine myomata. A 12/22/2015 pelvic ultrasound revealed an 11 x 7 x 8 cm uterus with a right transmural 5.0 x 3.3 x 3.8 cm fibroid abutting and distorting the endometrial lining. The patient was given options for her irregular bleeding that included hormone therapy, Mirena IUD, endometrial ablation, and hysterectomy. After discussion about the risks, benefits, alternatives, indications, and expectations of a hysterectomy, the patient decided to proceed with definitive treatment. The patient underwent a total abdominal hysterectomy and bilateral salpingooophorectomy on 06/04/2017. The abdominal approach was performed because Dr. Herrera did not feel, with the patient's significant history of 4 deliveries and a recent cholecystectomy, that a laparoscopic hysterectomy would be in her best interest. EBL was 500 mL, and urine output was 300 mL. At the time of surgery, it was noted that there was a fair amount of adhesions in the pelvis, particularly to the left fallopian tube and right fallopian tube. Furthermore, the bladder was adherent to the lower uterine segment, consistent with her obstetrical history. There were no significant events at the time of surgery. Although the patient underwent surgery via a general endotracheal tube, she later received an epidural in recovery, given her significant history of nausea and vomiting with narcotics. It was a concern that the patient would have a difficult recovery, given her pain control. Because of the patient's significant pain control issues, she was on her epidural until postop day #2. Initially, the Simeon catheter showed hematuria, but this later cleared to a clear yellow color. The patient did have significant nausea and vomiting during this time. On postop day #2, after the epidural and simeon were removed, the patient was having difficulty emptying her bladder. On examination, there was tympany noted in her abdomen. A Simeon catheter was placed and hematuria was noted. Workup at that point was performed and a retrograde CT of the abdomen and pelvis revealed an approximately 3 mm laceration in the dome of the bladder. After much discussion between myself, Dr. Torres, and also telephone consultation with Dr. Mc Guerrero urology, it was recommended that the patient have conservative management in dealing with her inadvertent cystotomy. I had a greater than 40-minute conversation with the patient, her and the patient's nurse, as well as Dr. Hopson regarding the diagnosis of a bladder laceration secondary to her hysterectomy. Given the patient's extensive surgical, recent history of a hysterectomy, and difficult control of her pain after surgery, and that the laceration was minimal at 3 mm, conservative management with bladder decompression via a Simeon catheter for the next 2 weeks would be in the patient's best interest. The patient, however, was quite emotionally to the idea of having this bladder laceration surgically repaired. I had further discussions with the patient regarding the risks of this surgery - which would include a further delay in her convalescence, the risk of anesthesia and significant provocative nauseating effects on the patient, not to mention an intrinsic risk of hemorrhage, infection, and an inadvertent laceration, cauterization, or ligation of adjacent ureters, intestines, and bladder - did not outweigh the benefits of surgery. The patient was still quite decided in her decision to proceed with surgery. She did, however, relent to repeat the CT study to see if there had been spontaneous closure of the laceration. A repeat retrograde contrast CT was performed on 06/10/2017. I spoke to Dr. Irineo Crawford, the reading radiologist, who confirmed that the contrast dye was completely contained in the bladder. I showed the CT images to the patient, who though mildly reluctant, was satisfied in continuing on her current care of bladder decompression and going home. The patient's current pain and nausea are satisfactorily controlled with oral medications. She is ambulating and tolerating a regular diet. She still continues to need, however: 1. Ibuprofen, 2. Acetaminophen, 3. Dilaudid, 4. Zofran, 5. Transdermal scopolamine, 6. PO Dilaudid, 7. Ativan, and 8. Methocarbamol for satisfactory comfort care. Prescriptions for these medications have either been written or faxed over to [facility] for the patient's convalescence at home. I expect to see the patient back here at [facility] [place] on June 13, for followup. The patient's Prevena wound VAC has already been removed today by myself, and her incision is healing quite nicely. The patient has been given strict precautions for modified bed rest, including no lifting greater than a gallon of milk. The patient is to call should she have any worsening fevers, chills, abdominal pain, or vaginal bleeding. JOB #: [id number] EXT JOB #:[id number]
== END 2017-06-11 13:40 | disposition home or self-care (01) | DRG 742 ==
LOC: SDS 07:28 → MS2 12:10
PROVIDERS: ADMIT Obstetrics & Gynecology; ATTEND Obstetrics & Gynecology
PROC: 0UT70ZZ Resection of Bilateral Fallopian Tubes, Open Approach (ICD-10-PCS; 2017-06-04)
PROC: 0UT90ZZ Resection of Uterus, Open Approach (ICD-10-PCS; principal; 2017-06-04 08:30)
DX: D25.9 Leiomyoma of uterus, unspecified (principal); N17.9 Acute kidney failure, unspecified; N99.71 Accidental puncture and laceration of a genitourinary system organ or structure during a genitourinary system procedure; J98.11 Atelectasis; N13.8 Other obstructive and reflux uropathy; F07.81 Postconcussional syndrome; G44.309 Post-traumatic headache, unspecified, not intractable; Y83.6 Removal of other organ (partial) (total) as the cause of abnormal reaction of the patient, or of later complication, without mention of misadventure at the time of the procedure; Y92.234 Operating room of hospital as the place of occurrence of the external cause; N92.1 Excessive and frequent menstruation with irregular cycle; E86.0 Dehydration; R11.2 Nausea with vomiting, unspecified; T40.2X5A Adverse effect of other opioids, initial encounter; Y92.230 Patient room in hospital as the place of occurrence of the external cause; N32.89 Other specified disorders of bladder; F41.9 Anxiety disorder, unspecified; D50.9 Iron deficiency anemia, unspecified; K66.0 Peritoneal adhesions (postprocedural) (postinfection); Z90.49 Acquired absence of other specified parts of digestive tract; Z98.51 Tubal ligation status; Z87.891 Personal history of nicotine dependence
CPT/HCPCS: 36415; 74022; 74176; 80048; 80053; 81001; 81025; 85025; 86850; 86900; 86901; 87086; 88307

== ENCOUNTER 2018-03-17 10:12 | Outpatient (CLI) | payer MEDICAID | END 2018-03-17 10:13 | disposition home or self-care (01) | LOC: SC 10:12 | PROVIDERS: ATTEND Internal Medicine Pulmonary Disease | DX: G47.30 Sleep apnea, unspecified (principal); G47.8 Other sleep disorders; R06.83 Snoring; G47.00 Insomnia, unspecified; G47.10 Hypersomnia, unspecified; R51 Headache | CPT/HCPCS: 99203; 99212 ==

== ENCOUNTER 2018-05-25 15:02 | Outpatient (CLI) | payer MEDICAID ==
--- NOTE | 2018-05-26 01:58 | Ultrasound Report ---
Reason: ABDOMINAL PAIN Procedure Date: 05/25/2018 Accession Number: [id number] / [id number] Procedure: US - Abdomen Complete CPT Code: FULL RESULT: EXAM: ABDOMEN ULTRASOUND EXAM DATE: 05/25/2018 05:03 PM. CLINICAL HISTORY: ABDOMINAL PAIN. COMPARISON: ABDOMEN/PELVIS W/O 06/10/2017 9:30 AM. TECHNIQUE: Real-time scanning was performed with static images obtained. FINDINGS: Liver: The liver demonstrates increased echogenicity, compatible with fatty infiltration. It measures 19.7 cm. Main portal vein flow: Hepatopetal. Gallbladder: Status post cholecystectomy. Biliary System: Common bile duct measures 4 mm. No intrahepatic or extrahepatic ductal dilatation. Pancreas: Visualized portion is unremarkable. Kidneys: Right: 9.8 cm longitudinally. Normal. No contour-deforming mass, stones, or hydronephrosis. Left: 10.8 cm longitudinally. Normal. No contour-deforming mass, stones, or hydronephrosis. Spleen: 11.7 cm. Normal in size and echotexture. Aorta and Inferior Vena Cava: Unremarkable. Other: None. IMPRESSION: Postoperative changes of cholecystectomy. No evident etiology for patient's pain. No hydronephrosis. [facility]
== END 2018-05-25 15:03 | disposition home or self-care (01) ==
LOC: DI 15:02
PROVIDERS: ATTEND Nurse Practitioner Gerontology
DX: R10.9 Unspecified abdominal pain (principal); Z90.49 Acquired absence of other specified parts of digestive tract
CPT/HCPCS: 76700

== ENCOUNTER 2018-06-18 09:44 | Outpatient (CLI) | payer MEDICAID ==
[2018-06-18 13:54] LABS: BASOPHILS % (AUTO) 0.6 %; EOSINOPHILS # (AUTO) 0.2 10^3/uL (0.0-0.7); EOSINOPHILS % (AUTO) 3.4 %; HGB - HEMOGLOBIN 13.2 g/dL (12.0-16.0); LYMPHOCYTES # (AUTO) 1.9 10^3/uL (1.5-3.5); LYMPHOCYTES % (AUTO) 27.1 %; MEAN CORPUSCULAR HEMOGLOBIN 28.5 pg (27.0-31.0); MEAN CORPUSCULAR HGB CONC 33.4 g/dL (32.0-36.0); MEAN CORPUSCULAR VOLUME 85.5 fL (81.0-99.0); MEAN PLATELET VOLUME 8.3 fL (7.9-10.8); MONOCYTES # (AUTO) 0.4 10^3/uL (0.0-1.0); MONOCYTES % (AUTO) 5.6 %; NEUTROPHILS # (AUTO) 4.4 10^3/uL (1.5-6.6); NEUTROPHILS % (AUTO) 63.3 %; PLT - PLATELET COUNT 347 10^3/uL (130-450); RED BLOOD COUNT 4.64 10^6/uL (4.20-5.40); RED CELL DISTRIBUTION WIDTH 13.4 % (12.0-15.0)
[2018-06-18 14:20] LABS: ALBUMIN 3.9 g/dL (3.2-5.5); ALBUMIN/GLOBULIN RATIO 1.1 (1.0-2.2); ALKALINE PHOSPHATASE 89 IU/L (42-121); ALT ALANINE AMINOTRANSFERASE 30 IU/L (10-60); AST ASPARTATE AMINOTRANSFERASE 21 IU/L (10-42); BILIRUBIN,TOTAL 0.3 mg/dL (0.2-1.0); BUN - BLOOD UREA NITROGEN 11 mg/dL (6-20); CALCIUM 8.6 mg/dL (8.5-10.3); CARBON DIOXIDE - CO2 28 mmol/L (21-32); CHLORIDE 103 mmol/L (101-111); CHOL/HDL RATIO 2.7 (<4.4); CHOLESTEROL 151 mg/dL; CREATININE 0.7 mg/dL (0.4-1.0); GFR - MDRD 95 (>89); GLUCOSE 94 mg/dL (70-100); HDL CHOLESTEROL 56 mg/dL; LDL CHOLESTEROL,CALCULATED 83 mg/dL; LDL/HDL RATIO 1.5 (<4.4); SODIUM 136 mmol/L (135-145); TOTAL PROTEIN 7.3 g/dL (6.7-8.2); VLDL CHOLESTEROL 12 mg/dL
[2018-06-18 15:44] LABS: HB2 TOTAL 14.1 g/dL; HEMOGLOBIN A1C 0.53 g/dL; HEMOGLOBIN A1C % 5.6 % (4.6-6.2)
== END 2018-06-18 23:59 | disposition home or self-care (01) ==
LOC: LAB.N 09:44
PROVIDERS: ATTEND Nurse Practitioner Gerontology
DX: Z13.9 Encounter for screening, unspecified (principal); R73.9 Hyperglycemia, unspecified
CPT/HCPCS: 36415; 80053; 80061; 83036; 83721; 85025